=== PATIENT | female | born 1975 | race Caucasian/White ===

== ENCOUNTER 2023-08-09 14:41 | Emergency (ER) | payer OTHER, SELFPAY ==
--- NOTE | ~2023-08-09 | CT_ITS ---
EXAMINATION: CT abdomen pelvis w con DATE: 08/09/2023 17:16 INDICATION: Constipation. Nausea and vomiting. TECHNIQUE: Computed tomography (CT) of the abdomen and pelvis was performed with 100 mL Omnipaque 350 intravenous contrast. Automated exposure control and iterative reconstruction technique were employe d. The dose-length product was 179.71 mGy-cm. COMPARISON: None. FINDINGS: The visualized portions of the lung bases demonstrate mild atelectasis. A calcified left robert ng nodule is consistent with old granulomatous disease. No pleural effusion. The heart size is normal . No pericardial effusion. There are cysts in the liver measuring up to 15 mm. The gallbladder, splee n, pancreas, and adrenal glands are normal. There are cysts in the kidneys measuring up to 7 mm on th e right. There are inserts in the fallopian tubes. There are no dilated loops of bowel. There is a mo derate volume of stool in the colon. There are no pathologically enlarged lymph nodes. There is physi ologic fluid in the pelvis. There is mild lumbar spondylosis. IMPRESSION: 1. No etiology for the patient's symptoms. Reviewed, dictated and finalized at location [facility]. [facility]
[2023-08-09 16:46] LABS: Basophils Absolute Auto 0.1 K/mm3 (0.0-0.1); Eosinophils Absolute Auto 0.1 K/mm3 (0-0.3); Hematocrit 37.3 % (37.0-47.0); Hemoglobin 11.3 g/dL (12.0-15.0); Immature Granulocyte Absolute 0.02 K/mm3 (0.00-0.031); Immature Granulocyte Percent A 0.3 % (0-0.5); Lymphocytes Absolute Auto 2.52 K/mm3 (0.9-3.2); Lymphocytes Percent Auto 35.4 % (18.3-44.2); Mean Corpuscular HGB Conc 30.3 g/dl (32-36); Mean Corpuscular Volume 82.5 fl (80-100); Mean Platelet Volume 10.2 fl (7.4-10.4); Monocytes Absolute Auto 0.6 K/mm3 (0.1-0.6); Monocytes Percent Auto 8.3 % (2.6-8.5); Neutrophils Absolute Auto 3.8 K/mm3 (1.3-6.7); Platelet Count Result 261 k/mm3 (150-375); Red Blood Count 4.52 M/mm3 (4.2-5.4); White Blood Count 7.1 K/mm3 (4.5-10.0)
[2023-08-09] MEDS: SODIUM CHLORIDE 0.9% IV 1,000 ML 999 ML IV CONT (16:46)
[2023-08-09] MEDS: MORPHINE SULFATE (*CRX) 4 MG/ML INJ IV PUSH (16:47)
[2023-08-09] MEDS: ONDANSETRON INJ 4 MG/2 ML VIAL IV PUSH (16:47)
[2023-08-09 16:48] LABS: Appearance Urine Clear (Clear); Bilirubin Urine Negative (Negative); Blood Urine Negative (Negative); Color Urine Yellow (Yellow); Glucose Urine UA Negative (Negative); Ketones Urine Negative (Negative); Leukocyte Esterase Ur Negative LEU/UL (Negative); Nitrate Urine Negative (Negative); Protein Urine Negative (Negative); Specific Grav Ur 1.006 (1.001-1.035); Urobilinogen Urine 0.2 mg/dL (<2.0)
[2023-08-09 16:49] VITALS: BP 113/68; PULSE 65; RESP 17; O2SAT 98
[2023-08-09 16:54] LABS: Potassium 3.9 mmol/L (3.4-5.0)
[2023-08-09 16:58] LABS: Alanine Aminotransferase 351 U/L (6-35); Alkaline Phosphatase 71 U/L (38-126); Anion Gap 6 mmol/L (8-16); Aspartate Amino Transferase 197 U/L (14-36); Bilirubin,Total 0.6 mg/dL (0.2-1.3); Blood Urea Nitrogen 8 mg/dL (7-17); Calcium 9.1 mg/dL (8.4-10.2); Carbon Dioxide 23 mmol/L (22-30); Chloride 107 mmol/L (98-107); Estimated CRCL calculation 93 ml/min; Estimated Glomerular Filt Rate > 60; Glucose 92 mg/dL (65-110); Lipase 115 U/L (23-300); Sodium 136 mmol/L (137-145)
[2023-08-09 17:11] LABS: Add Urine Microscopic? NO
--- NOTE | 2023-08-09 17:17 | ED.ABDPAIN ---
HPI - Abdominal Pain General Chief Complaint: Abdominal Pain Stated Complaint: constipated Time Seen by Provider: 08/09/23 16:34 Source: patient Mode of arrival: ambulatory Limitations: no limitations History of Present Illness HPI narrative: Patient is a 48-year-old female who presents the ED with report of abdominal pain and constipation. Patient reports she has not had a bowel movement in the last 2 weeks. She has not really passed any stool. She has been trying several [id number] therapies and laxatives at home without improvement. She does note history of frequent constipation and states this is a common issue for her. She began having abdominal distention over the last couple of days, worse today. She does report having nausea with vomiting today. Denies fevers. Denies urinary complaints. Denies previous history of bowel obstruction. Has had previous section. Related Data Allergies Allergy/AdvReac Type Severity Reaction Status Date / Time No Known Allergies Allergy Verified 08/09/23 16:37 Review of Systems Review of Systems: CONSTITUTIONAL: Denies fever, chills, or sweats. GASTROINTESTINAL: See HPI. GENITOURINARY: Denies dysuria or hematuria. MUSCULOSKELETAL: Denies back pain, extremity pain, myalgia. All systems reviewed & are unremarkable except as noted in HPI and below Exam Narrative: GENERAL: Well appearing, thin, non-toxic, in no acute distress. HEAD: Normocephalic, atraumatic. RESPIRATORY: Airway patent, respirations nonlabored. Clear to auscultation bilaterally, no rales, rhonchi, wheezing. CARDIOVASCULAR: Regular rate and rhythm without murmurs, rubs, or gallops. ABDOMINAL: Abdomen is slightly bloated and distended, tenderness to palpation in epigastric region and throughout lower abdomen. Hypoactive BS. MUSCULOSKELETAL: Moves all extremities. No gross deformities. SKIN: Warm, dry, normal color. NEURO: A&O X3. Speech clear. Cranial nerves II-XII grossly intact. Steady gait. No ataxic movements. PSYCHIATRIC: Appropriate mood and affect. Normal interaction. Course Vital Signs Vital signs: Vital Signs Pulse Rate 65 08/09/23 16:49 Respiratory Rate 17 08/09/23 16:49 Blood Pressure 113/68 08/09/23 16:49 Pulse Oximetry 98 08/09/23 16:49 Pulse Rate 65 08/09/23 16:49 Respiratory Rate 17 08/09/23 16:49 Blood Pressure 113/68 08/09/23 16:49 Pulse Oximetry 98 08/09/23 16:49 MDM - Abdominal Pain MDM Narrative Medical decision making narrative: Patient presented to ED with 2 week history of constipation, tried several rpas-tif-xazzypr remedies without improvement, developed nausea and vomiting today. Vital signs stable upon arrival. Patient in no acute distress. Diffuse tenderness and distension throughout abdominal exam. Cbc without leukocytosis. Minimal anemia. CMP unremarkable aside from mild transaminitis noted. Normal lipase and bilirubin. UA negative. CT abdomen pelvis obtained and unremarkable. Does show moderate volume colonic stool. No abnormalities of liver noted. Discussed lab and imaging findings with patient. Discussed constipation management, therapies to try at home. Patient would like to try something the ED. Patient given MiraLax, Dulcolax suppository, soapsuds enema. On re-evaluation, she is feeling much better. Had large BM in the ED. Feels ready to go home at this time. Discussed continued constipation management, GI f/u, strict return precautions. Also recommended f/u with repeat LFT lab testing. Patient in agreement with plan. D/C in stable condition. Medical Records Attestation: I reviewed the patient's medical records. Lab Data Attestation: I reviewed the patient's lab results. 08/09/23 16:40 08/09/23 16:40 Labs: Lab Results 08/09/23 Range/Units 16:40 WBC 7.1 (4.5-10.0) K/mm3 RBC 4.52 (4.2-5.4) M/mm3 Hgb 11.3 L (12.0-15.0) g/dL Hct 37.3 (37.0-47.0) % MCV 82.5 (80-1
[2023-08-09] MEDS: KETOROLAC 30 MG/ML VIAL (*BKC) IV PUSH (18:02)
[2023-08-09] MEDS: BISACODYL 10 MG SUPPOSITORY RECTAL (18:03)
[2023-08-09] MEDS: polyethylene glycoL 3350 17 GM POWD.PACK PO (18:03)
[2023-08-09 19:27] VITALS: BP 110/66; PULSE 62; RESP 16; O2SAT 99
== END 2023-08-09 19:29 | disposition home or self-care (01) ==
PROVIDERS: Emergency Medicine; Emergency Provider Physician Assistant; PCP Family Medicine
DX: K59.00 Constipation, unspecified (principal); R74.01 Elevation of levels of liver transaminase levels
CPT/HCPCS: 36415; 74177; 80053; 81003; 81025; 83690; 85025; 96361; 96374; 96375; 99284; A9270; J1885; J2270; J2405; J7030; Q9967

== ENCOUNTER 2023-10-08 09:15 | Outpatient (RCR) | payer OTHER, SELFPAY ==
--- NOTE | 2023-08-20 10:35 | OPREHPOC ---
Outpatient Therapy Plan of Care This is a Multidisciplinary Plan of Care that may contain components documented by all disciplines (PT, OT, and ST.) PT Problem 1 PT Problem #1 Knowledge Deficit PT Goal 1 Goal 1. Patient will perform independent HEP Target Visit 3 PT Problem 2 PT Problem #2 Pain PT Goal 1 Goal 1. No pain with palpation of pelvic floor 2. No pain with abdominal palpation 3. Abdominal pain no higher than 3/10 with daily activities Target Visit 6 PT Problem 3 PT Problem #3 Impaired Strength PT Goal 1 Goal 1. Patient able to fully contract and relax pelvic floor musculature Target Visit 6 PT Problem 4 PT Problem #4 Impaired Functional ADLs PT Goal 1 Goal 1. Patient will not need to call off work due to abdominal pain for at least 1 month 2. Patient will be able to have at least 2 BM per week Target Visit 6
--- NOTE | 2023-08-20 10:35 | PTOPEVAL1 ---
Assessment and note entered by Joann Davis DPT Evaluation Information Assessment Status Evaluation Subjective Information Pt reports a couple year history of constipation and also had a history of it as a child. Her symptoms have been worsening. BM once a week to 1. 5 weeks, sometimes longer. Also states she has been told she needs to have part of her colon removed in addition to having pelvic floor issues. Highest pain 7/10 and lowest 3/10. Pain is typically in her abdomen and sometimes sharp pains near her rectum. Voids 4-5 times a day and 1 time at night. Denies urinary incontinence. Can hold urge as long as needed. Some mild pain after intercourse and tampon use. Pt has been 4 times, 3 C-sections and 1 vaginal delivery. No other FOOD PACKER or b/b history. States she typically drinks water, 1 cup of coffee in the morning and occasional energy drink. Eats 3 meals a day and snacks, small breakfast and larger dinner. When the pain is high reports she can't eat as much. Pt does not eat much dairy but does not cut out any specific food groups. Pt reports the pain from constipation sometimes limits activities and has gotten to the point where she has thrown up. Has had to miss work due to the pain. Pt returns to [facility] in about a month. Patient goal: relief of constipation and pain. Reported Pain Level Pain Score 3: Self Report Assessment PT Clinical Summary The patient is presenting to skilled therapy with a history of constipation and pelvic pain. She presents with significantly increased pelvic floor muscle tone and difficulty with contract/relax as well as pain with palpation. These impairments are contributing to her constipation and pain with typical activities. She will highly benefit from therapy to reduce pain and constipation and restore full function. Plan of Care Interventions Electrical Stimulation,Hot Pack/Cold Pack,Manual Therapy,Neuro Re-education,Patient/Caregiver Education,Therapeutic Activities,Therapeutic Exercise PT Services Indicated Yes Treatment Frequency and 1 time a week for 6 weeks Duration These treatments will address the objective and functional deficits as defined above. The patient will be advanced safely and appropriately in order for the patient to progress towards his/her prior level of function. Additional exercises will be introduced and as well as a comprehensive home exercise program upon discharge, if needed, ?to ensure carryover of functional gains achieved in the clinic. This treatment plan has been reviewed and agreement upon by the patient.
--- NOTE | 2023-09-16 13:42 | PCPTNOTE ---
Patient called to cancel appointment 09/16/23 due to illness.
--- NOTE | 2023-09-23 15:53 | OPREHPOC ---
Outpatient Therapy Plan of Care This is a Multidisciplinary Plan of Care that may contain components documented by all disciplines (PT, OT, and ST.) PT Problem 1 PT Problem #1 Knowledge Deficit PT Goal 1 Goal 1. Patient will perform independent HEP Target Visit 3 Progress Met PT Problem 2 PT Problem #2 Pain PT Goal 1 Goal 1. No pain with palpation of pelvic floor 2. No pain with abdominal palpation 3. Abdominal pain no higher than 3/10 with daily activities Target Visit 6 Progress Met PT Problem 3 PT Problem #3 Impaired Strength PT Goal 1 Goal 1. Patient able to fully contract and relax pelvic floor musculature Target Visit 10 Progress Partially Met PT Problem 4 PT Problem #4 Impaired Functional ADLs PT Goal 1 Goal 1. Patient will not need to call off work due to abdominal pain for at least 1 month 2. Patient will be able to have at least 2 BM per week Target Visit 10 Progress Partially Met
--- NOTE | 2023-09-23 15:55 | PTOPPROG ---
Assessment and note entered by Joann Davis DPT Evaluation Information Assessment Status Progress Subjective Information Patient reports feeling improvement with therapy. Has had 2 BM in the last week. reports no pain in the last week, did have some a couple weeks ago. Return to MD not scheduled yet. Assessment PT Clinical Summary The patient has made good progress in therapy so far. She reports no pelvic or abdominal pain in the last week and has had 2 BM in the last week. She demonstrates improved pelvic floor muscle tone , no pain with palpation, and able to contract musculature but continued difficulty relaxing. She will benefit from continued therapy to further address muscle tone and pain in order to restore full function. Plan of Care Interventions Electrical Stimulation,Hot Pack/Cold Pack,Manual Therapy,Neuro Re-education,Patient/Caregiver Education,Therapeutic Activities,Therapeutic Exercise PT Services Indicated Yes Treatment Frequency and 1 time a week for 4 visits Duration These treatments will address the objective and functional deficits as defined above. The patient will be advanced safely and appropriately in order for the patient to progress towards his/her prior level of function. Additional exercises will be introduced and as well as a comprehensive home exercise program upon discharge, if needed, ?to ensure carryover of functional gains achieved in the clinic. This treatment plan has been reviewed and agreement upon by the patient.
--- NOTE | 2023-10-14 11:52 | PTOPDC ---
Assessment and note entered by Joann Davis DPT Evaluation Information Assessment Status Discharge - Pt Not Present Subjective Information - Assessment PT Clinical Summary The patient called to discharge from therapy as she will be having surgery. Plan of Care PT Services Indicated No
== END 2023-10-14 14:37 | disposition home or self-care (01) ==
LOC: ANHPT 09:15
PROVIDERS: PCP Family Medicine
DX: K59.00 Constipation, unspecified (principal)
CPT/HCPCS: 97110; 97112; 97140; 97162; 97530

== ENCOUNTER 2023-10-21 07:44 | Emergency (ER) | payer OTHER, SELFPAY ==
--- NOTE | ~2023-10-21 | CT_ITS ---
Noncontrast CT scan of the cervical spine Technique: Multiple contiguous axial [address] images of the cervical spine were obtained and rec onstructed in 2D sagittal and coronal planes on the acquisition scanner. Dose reduction technique was used on this scan by utilizing automated exposure control, adjustment of the mA and/or kV according to patient size. The dose-length product (DLP) was 195.73 mGy-cm. Clinical History: Left-sided radiculopathy Findings: No fracture injury. There is minimal grade 1 retrolisthesis of C5 over C6. There is advance d degenerative disc narrowing at C5-C6. Remaining disc spaces are relatively well-preserved. At C2-C3, there is minimal disc bulge. No spinal canal stenosis, cord compression or neural foraminal narrowing identified. At C3-C4, there is mild central disc bulge with probable left facet arthropathy. Possible minimal lef t neural foraminal narrowing. Right neural foramen preserved. No canal stenosis or cord compression e vident. At C4-C5, there is minimal disc bulge. No spinal canal stenosis, cord compression, or definite neural foraminal narrowing. At C5-C6, there is mild disc osteophyte complex. No canal stenosis or cord compression. Possible mini mal bilateral neural foraminal narrowing. At C6-C7, there is minimal disc bulge. No spinal canal stenosis, cord compression, or neural foramina l narrowing. Paravertebral soft tissues are unremarkable. No prevertebral soft tissue swelling. Impression: Mild degenerative spondylosis overall. Minimal grade 1 retrolisthesis of C5 over C6. Reviewed, dictated and finalized at [facility]. Impression: Mild degenerative spondylosis overall. Minimal grade 1 retrolisthesis of C5 over C6.
--- NOTE | 2023-10-21 09:35 | ED.GENADULT ---
HPI - General Adult General Chief complaint: Neck Pain/Injury Stated complaint: Neck pain Time Seen by Provider: 10/21/23 09:00 Source: patient Mode of arrival: ambulatory Limitations: no limitations History of Present Illness HPI narrative: This is a 48-year-old female who presents to the ED with chief complaint of neck pain ongoing for the past week. Patient reports she saw her PCP initially was told she had degenerative disc disease and neck. They have scattered this therapy. Patient states the pain continues to worsen she does not feel that she can do 6 weeks of physical therapy. Reports pain is located in the neck and radiates superiorly and inferiorly at times. Reports pain is worse on the left side and radiates into the left shoulder and left upper arm. Denies chest pain, shortness of breath, numbness, weakness, fevers, chills, nausea, vomiting. Denies IV drug use. Related Data Home Medications Medication Instructions Recorded Confirmed alprazolam 1 mg tablet mg 10/21/23 cyclobenzaprine 10 mg tablet mg 10/21/23 hydroxyzine HCl 50 mg tablet mg 10/21/23 lithium carbonate 450 mg mg PO 10/21/23 tablet,extended release meloxicam 7.5 mg tablet mg 10/21/23 ropinirole 0.25 mg tablet mg 10/21/23 10/21/23 Allergies Allergy/AdvReac Type Severity Reaction Status Date / Time No Known Allergies Allergy Verified 10/21/23 08:03 Review of Systems Review of Systems: All systems as dictated in HPI Exam Narrative: GENERAL: Well-appearing, well-nourished, and in no acute distress. HEAD: Normocephalic, atraumatic. EYES: PERRLA and EOMI. ENT: Nares clear, no rhinorrhea or epistaxis. Mucous membranes moist. Oropharynx without tonsillar hypertrophy exudate or other lesions. NECK: Supple. No adenopathy or masses. No signs of meningismus. CHEST: No respiratory distress. Clear to auscultation. No wheezes rales or rhonchi HEART: Regular rate and rhythm. No murmur heard. Normal peripheral pulses. ABDOMEN: Soft, nontender, nondistended, normal active bowel sounds. MSK: No midline spinal tenderness present. Active range of motion limited with extension of the cervical spine and leftward rotation of the cervical spine. Otherwise ROM is normal. 5/5 strength and sensation in the upper and lower extremities. SKIN: Warm, dry, no rash. NEURO: Alert and oriented x3. No focal deficits. PSYCH: Normal mood and affect. Course Reevaluation(s) Reevaluation #1: Feeling much improved on Toradol and Valium. Ready to go home. Date: 10/21/23 Time: 10:49 Medical Decision Making MDM Narrative Medical decision making narrative: This is a 48-year-old female who presents to the ED with chief complaint of neck pain x1 week. Patient has been told she has degenerative disc disease. Vitals are normal. No neurologic deficits. No signs of meningismus. Lab work shows my slightly elevated white count 11.4, consistent with stress reaction. Hemoglobin noted to be low at 10.6 with MCV low indicating microcytic anemia CMP is unremarkable. CT C-spine: Impression: Mild degenerative spondylosis overall. Minimal grade 1 retrolisthesis of C5 over C6.. Overall symptoms and presentation are consistent with degenerate disease. She was given Valium and Toradol here with good relief of symptoms. She has follow-up with her PCP and knows she has to do physical therapy. Pt will be discharged in stable condition. Return precautions given and supportive measures discussed. Pt is understanding and agreeable with plan for discharge and follow-up with PCP. Lab Data 10/21/23 09:56 10/21/23 09:56 Labs: Lab Results 10/21/23 Range/Units 09:56 WBC 11.4 H (4.5-10.0) K/mm3 RBC 4.42 (4.2-5.4) M/mm3 Hgb 10.6 L (12.0-15.0) g/dL Hct 32.8 L (37.0-47.0) % MCV 74.2 L (80-100) fl MCH 24.0 L (26-34) pg MCHC 32.3 (32-36) g/dl RDW 15.7 H (11.5-14.5) % Plt Count 268 (150-375) k/mm3 MPV 9.9 (7.4-10.
[2023-10-21] MEDS: KETOROLAC 30 MG/ML VIAL (*BKC) IV PUSH (09:52)
[2023-10-21] MEDS: diazePAM INJ (*CRX) 10 MG/2 ML SYRINGE 5 MG IV PUSH (09:53)
[2023-10-21 10:04] LABS: Basophils Absolute Auto 0.1 K/mm3 (0.0-0.1); Basophils Percent Auto 0.4 % (0.2-1.2); Eosinophils Absolute Auto 0.1 K/mm3 (0-0.3); Eosinophils Percent Auto 0.5 % (0-4.4); Hematocrit 32.8 % (37.0-47.0); Hemoglobin 10.6 g/dL (12.0-15.0); Immature Granulocyte Absolute 0.05 K/mm3 (0.00-0.031); Immature Granulocyte Percent A 0.4 % (0-0.5); Lymphocytes Absolute Auto 1.25 K/mm3 (0.9-3.2); Mean Corpuscular HGB Conc 32.3 g/dl (32-36); Mean Corpuscular Volume 74.2 fl (80-100); Mean Platelet Volume 9.9 fl (7.4-10.4); Monocytes Absolute Auto 1.1 K/mm3 (0.1-0.6); Neutrophils Absolute Auto 8.8 K/mm3 (1.3-6.7); Neutrophils Percent Auto 77.7 % (45.5-73.1); Platelet Count Result 268 k/mm3 (150-375); Red Blood Count 4.42 M/mm3 (4.2-5.4); Red Cell Distribution Width 15.7 % (11.5-14.5); White Blood Count 11.4 K/mm3 (4.5-10.0)
[2023-10-21 10:21] LABS: Alanine Aminotransferase 27 U/L (6-35); Albumin Level 3.7 g/dL (3.5-5.1); Alkaline Phosphatase 65 U/L (38-126); Anion Gap 7 mmol/L (4-12); Aspartate Amino Transferase 27 U/L (14-36); Bilirubin,Total 0.5 mg/dL (0.2-1.3); Blood Urea Nitrogen 9 mg/dL (7-17); Calcium 8.7 mg/dL (8.4-10.2); Carbon Dioxide 21 mmol/L (22-30); Chloride 106 mmol/L (98-107); Estimated CRCL calculation 97 ml/min; Estimated Glomerular Filt Rate > 60; Glucose 101 mg/dL (65-110); Potassium 3.3 mmol/L (3.4-5.0); Sodium 134 mmol/L (137-145)
[2023-10-21 10:35] LABS: Hypochromasia 1+; Microcytosis 1+ (NORMAL); Platelet Estimate Adequate (Adequate); Schistocytes None Seen
== END 2023-10-21 11:00 | disposition home or self-care (01) ==
PROVIDERS: Emergency Provider Physician Assistant; PCP Family Medicine
DX: M50.30 Other cervical disc degeneration, unspecified cervical region (principal); M47.812 Spondylosis without myelopathy or radiculopathy, cervical region
CPT/HCPCS: 36415; 72125; 80053; 85025; 96374; 96375; 99284; J1885; J3360

== ENCOUNTER 2023-11-11 08:15 | Outpatient (RCR) | payer OTHER, SELFPAY ==
--- NOTE | 2023-11-01 09:09 | PTOPEVAL1 ---
Assessment and note entered by Collin Schaefer, PT Evaluation Information Assessment Status Evaluation Diagnosis Cervical pain, Degenerative disc disease Onset March 2023 Subjective Information Reports that she has had neck pain for almost a year at this point. She has been getting pain into shoulder and neck. Occasional pain down her arms. Pain is constant. She has a lot of trouble at work with pain when lifting and reaching. Headaches are frequent as well and seem to stem from the base of her skull. Frequent wake up throughout the night with pain and discomfort. Reported Pain Level Pain Score 4: Self Report Assessment PT Clinical Summary Patient demonstrates issues with ry cervical ROM at this time with postural deficits compounding. Some periscapular weakness inducing increased cervical tension. Patient has visible structural issues with C5-C6 with CT imaging. Will benefit from skilled therapy to address ROM and strength deficits for gross pain reduction and ROM improvement. Plan of Care Interventions Electrical Stimulation,Manual Therapy,Neuro Re- education,Therapeutic Activities,Therapeutic Exercise PT Services Indicated Yes Treatment Frequency and 2x/week for 12 visits Duration These treatments will address the objective and functional deficits as defined above. The patient will be advanced safely and appropriately in order for the patient to progress towards his/her prior level of function. Additional exercises will be introduced and as well as a comprehensive home exercise program upon discharge, if needed, ?to ensure carryover of functional gains achieved in the clinic. This treatment plan has been reviewed and agreement upon by the patient.
--- NOTE | 2023-11-01 09:15 | OPREHPOC ---
Outpatient Therapy Plan of Care This is a Multidisciplinary Plan of Care that may contain components documented by all disciplines (PT, OT, and ST.) PT Problem 1 PT Problem #1 Knowledge Deficit PT Goal 1 Goal [place] wth HEP Target Visit 4 PT Problem 2 PT Problem #2 Impaired Range of Motion PT Goal 1 Goal Demonstrate 70 degrees ry cervical rotation to improve functional field of view Target Visit 12 PT Goal 2 Goal Demonstrate 30 degrees ry cervical bending pain free for improved sellping posture Target Visit 12 PT Problem 3 PT Problem #3 Impaired Strength PT Goal 1 Goal Improve ry shoulder external rotation strength to improve shoulder capsule strength and stability for postural control Target Visit 12
--- NOTE | 2023-11-16 10:50 | PCPTNOTE ---
pt did not show for today's appt; called and left voicemail message. She does not have any further appt scheduled.
--- NOTE | 2023-11-30 13:56 | PCPTNOTE ---
2nd now show, left voice mail with reminder of next appt.
--- NOTE | 2023-12-03 09:39 | PCPTNOTE ---
3rd now show, left voice mail notice of d/c.
--- NOTE | 2023-12-06 08:26 | PTOPDC ---
Assessment and note entered by Collin Schaefer, PT Discharge Information Assessment Status Discharge - Pt Not Present Diagnosis Cervical pain, Degenerative disc disease Onset March 2023 Subjective Information Reports that she has had neck pain for almost a year at this point. She has been getitng pain into shoulder and neck. Occasional pain down her arms. Pain is constant. She has a lot of trouble at work with pain when lifting and reaching. Headaches are frequent as well and seem to stem from the base of her skull. Frequent wakeup throughout the night with pain and discomfort. Assessment PT Clinical Summary Patient has No Showed/No Called for 3 consecutive visits with last attended appointment on 11/11/23. Patient was present for 4 of 8 scheduled visits. Will be discharged at this time per cancellation policy and lack of communication with clinic. Plan of Care PT Services Indicated D/C per cancellation policy
== END 2023-12-06 09:23 | disposition home or self-care (01) ==
LOC: ANHPT 08:15
PROVIDERS: PCP Family Medicine; Visit Provider Family Medicine
DX: M50.30 Other cervical disc degeneration, unspecified cervical region (principal)
CPT/HCPCS: 20560; 97014; 97110; 97140; 97161; 99199; G0283

== ENCOUNTER 2023-12-13 01:00 | Emergency (ER) | payer OTHER, SELFPAY ==
[2023-12-13 01:04] VITALS: BP 125/98; PULSE 105; RESP 16; TEMP 37.2; O2SAT 100
[2023-12-13 01:32] VITALS: BP 133/88; PULSE 82; RESP 17; O2SAT 98
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
[2023-12-13] MEDS: ceFAZolin SODIUM 1 GM VIAL IM (01:50)
[2023-12-13] MEDS: WATER, STERILE FOR INJECTION 10 ML VIAL XX (01:50)
[2023-12-13] MEDS: IBUPROFEN 400 MG TABLET 800 MG PO (01:50)
[2023-12-13] MEDS: ACETAMINOPHEN 500 MG TABLET 1000 MG PO (01:50)
[2023-12-13 01:51] VITALS: BP 133/88; PULSE 97; RESP 17; O2SAT 97
== END 2023-12-13 01:57 | disposition home or self-care (01) ==
PROVIDERS: Emergency Provider Emergency Medicine; PCP Family Medicine
DX: S51.812A Laceration without foreign body of left forearm, initial encounter (principal); W26.0XXA Contact with knife, initial encounter
CPT/HCPCS: 96372; 99283; A9270; J0690

== ENCOUNTER 2024-03-21 09:44 | Emergency (ER) | payer OTHER, SELFPAY ==
--- NOTE | ~2024-03-21 | XR_ITS ---
EXAMINATION: XR ankle RT min 3V DATE: 03/21/2024 10:07 INDICATION: Right ankle injury and swelling. TECHNIQUE: 4 views of right ankle were obtained. COMPARISON: None. FINDINGS: There is an oblique fracture of distal fibula with medial aspect of the fracture line at th e level of the tibial plafond. The distal fracture fragment demonstrates 2 mm posterolateral displace ment. Joint spaces are normal. There is ankle soft tissue swelling. IMPRESSION: 1. Oblique fracture of distal fibula. Reviewed, dictated and finalized at location A.
[2024-03-21 09:47] VITALS: BP 110/69; PULSE 68; RESP 16; TEMP 36.3; O2SAT 98
[2024-03-21] MEDS: HYDROcodone/acetaminophen (*CRX) 5-325 MG TABLET 1 TAB PO (11:32)
--- NOTE | 2024-03-21 11:32 | ED.LOWEXIN ---
HPI - Extremity Injury (Lower) General Chief Complaint: Extremity Injury, Lower Stated Complaint: fall, ankle pain Time Seen by Provider: 03/21/24 11:25 Source: patient Mode of arrival: ambulatory Limitations: no limitations History of Present Illness HPI Narrative: Patient is a 48 y/o female who presents to the ED with c/o R ankle pain. Patient reports she was locking up her dog early this morning when she slipped and fell, rolling her R ankle. Inversion injury. C/o pain to R lateral ankle. Reports pain radiating into foot with some tingling. Denies numbness. Denies any other areas of pain. Denies HI/LOC. Related Data Home Medications Medication Instructions Recorded Confirmed alprazolam 1 mg tablet mg 10/21/23 cyclobenzaprine 10 mg tablet mg 10/21/23 hydroxyzine HCl 50 mg tablet mg 10/21/23 lithium carbonate 450 mg mg PO 10/21/23 tablet,extended release meloxicam 7.5 mg tablet mg 10/21/23 ropinirole 0.25 mg tablet mg 10/21/23 10/21/23 Allergies Allergy/AdvReac Type Severity Reaction Status Date / Time No Known Allergies Allergy Verified 12/13/23 01:11 Review of Systems Review of Systems: All systems reviewed & are unremarkable except as noted in HPI. All systems reviewed & are unremarkable except as noted in HPI and below Exam Narrative: GENERAL: Well appearing, thin, non-toxic, in no acute distress. HEAD: Normocephalic, atraumatic. RESPIRATORY: Airway patent, respirations nonlabored. CARDIOVASCULAR: Regular rate and rhythm. DP/PT pulses are intact and easily palpable. MUSCULOSKELETAL: Moves all extremities. Limited ROM of R ankle d/t pain. Moderate swelling noted to R lateral malleolus with focal tenderness to palpation extending across anterior dorsal foot. No significant tenderness throughout foot or knee. Sensation intact throughout foot and lower extremity. No foot drop. SKIN: Warm, dry, normal color. NEURO: A&O X3. Speech clear. No ataxic movements. PSYCHIATRIC: Appropriate mood and affect. Normal interaction. Course Vital Signs Vital signs: Vital Signs Temperature 97.4 F L 03/21/24 09:47 Pulse Rate 68 03/21/24 09:47 Respiratory Rate 16 03/21/24 09:47 Blood Pressure 110/69 03/21/24 09:47 Pulse Oximetry 98 03/21/24 09:47 Temperature 97.4 F L 03/21/24 09:47 Pulse Rate 68 03/21/24 09:47 Respiratory Rate 16 03/21/24 09:47 Blood Pressure 110/69 03/21/24 09:47 Pulse Oximetry 98 03/21/24 09:47 MDM - Extremity Injury (Lower) MDM Narrative Medical decision making narrative: Patient presented to ED with right ankle pain status post inversion injury. Vital signs stable. Patient's injury is consistent with musculoskeletal etiology. No signs of neurologic or vascular compromise on physical examination. Compartments are soft without signs of compartment syndrome. XR showing oblique fracture of distal fibula. Pain is consistent with exam and injury. Patient placed in short leg posterior splint in the ED. Given pain medication. Given crutches. Will be discharged to follow-up with orthopedics as an outpatient. Advised to call office today to make follow-up appointment. Discussed rice therapy, strict return precautions. Patient denies any other areas of pain or injury from the fall. Discharged in stable condition. Medical Records Attestation: I reviewed the patient's medical records. Imaging Data Attestation: I personally reviewed and interpreted this imaging study as follows: Radiologist's impression: ITS Impressions Ankle X-Ray 03/21/24 10:10 IMPRESSION: 1. Oblique fracture of distal fibula. Discharge Plan Discharge Clinical Impression: Fall from ground level Fracture of distal end of fibula Qualifiers: Encounter type: initial encounter Fracture type: closed Fracture morphology: unspecified fracture morphology Laterality: right Qualified Code(s): S82.831A - Other fracture of upper and lower end of right fibul
[2024-03-21] MEDS: KETOROLAC (*BKC) 60 MG/2 ML VIAL IM (11:33)
== END 2024-03-21 12:25 | disposition home or self-care (01) ==
PROVIDERS: Emergency Provider Physician Assistant; PCP Family Medicine
DX: S89.391A Other physeal fracture of lower end of right fibula, initial encounter for closed fracture (principal); W01.0XXA Fall on same level from slipping, tripping and stumbling without subsequent striking against object, initial encounter; X50.9XXA Other and unspecified overexertion or strenuous movements or postures, initial encounter
CPT/HCPCS: 29515; 73610; 96372; 99284; A9270; J1885

== ENCOUNTER 2024-04-14 14:42 | Outpatient (CLI) | payer OTHER, SELFPAY ==
--- NOTE | ~2024-04-14 | XR_ITS ---
XR ankle RT min 3V 04/14/2024 14:57 Indication: Follow-up right ankle fracture Procedure: 4 views right ankle performed in fiberglass cast which obscures bone detail Comparison: 03/21/2024 Findings: There is a healing oblique minimally displaced distal fibular fracture in near-anatomic ali gnment. Ankle mortise intact. Soft tissue evaluation limited by cast. No foreign bodies identified. S table alignment allowing for differences of technique. Impression: 1: Stable alignment of healing oblique distal fibular fracture. Reviewed, dictated and finalized at location B. Impression: 1: Stable alignment of healing oblique distal fibular fracture.
== END 2024-04-14 14:43 | disposition home or self-care (01) ==
PROVIDERS: PCP Family Medicine; Visit Provider Orthopaedic Surgery
DX: S82.839D Other fracture of upper and lower end of unspecified fibula, subsequent encounter for closed fracture with routine healing (principal); X58.XXXD Exposure to other specified factors, subsequent encounter
CPT/HCPCS: 73610

== ENCOUNTER 2024-09-10 19:47 | Emergency (ER) | payer OTHER, SELFPAY ==
--- NOTE | ~2024-09-10 | XR_ITS ---
EXAM: XR knee RT 3V DATE: 09/10/2024 20:14 HISTORY: injury . COMPARISON: None available. FINDINGS: Normal mineralization. No fracture or dislocation. No lytic or blastic lesion. Joint space s are maintained. No erosion or periosteal change. Subcutaneous edema over the medial thigh. Large vo lume joint fluid. IMPRESSION: No acute osseous finding in the right knee. Large right knee joint effusion. Reviewed, dictated and finalized at location K.
[2024-09-10 19:49] VITALS: BP 124/84; PULSE 120; RESP 20; TEMP 36.6; O2SAT 100
--- OUTSIDE RECORDS SUMMARY | 2024-09-10 19:50 | XMS_ITS | Clinical Summary ---
Author Organization [facility] Address [address] [place] [address] Phone Care Team Providers Care Complex Commercial Litigation Paralegal Name Role Phone Jarrell Rios MD Primary Care Provider [phone] Allergies No known active allergies Medications pantoprazole (PROTONIX) 40 MG Tablet Delayed Response Take 1 tablet every day by oral route in the morning. Active Abilify 15 MG Tablet Take 0.5 Tablets by mouth daily. 30 Tablet 3 4 Active escitalopram (LEXAPRO) 20 MG Tablet Take 1 Tablet by mouth daily. 30 Tablet 3 4 Active Lexapro 10 MG Tablet Take 1 Tablet by mouth daily. 30 Tablet 3 4 Active hydrOXYzine (ATARAX) 50 MG Tablet Take 1 Tablet by mouth 3 times daily as needed for Anxiety. 90 Tablet 3 4 Active mirtazapine (REMERON) 30 MG Tablet Take 1 Tablet by mouth nightly. 30 Tablet 3 4 Active ALPRAZolam (XANAX) 1 MG TabletIndicatio ns:Chronic anxiety Take 0.5-1 Tablets by mouth 2 times daily as needed for Anxiety. 60 Tablet 5 Active lithium (ESKALITH) 450 MG Tablet Controlled Release Take 1 Tablet by mouth 2 times daily. 60 Tablet 5 Active lithium (ESKALITH) 450 MG Tablet Controlled Release Take 1 Tablet by mouth 2 times daily. 60 Tablet 3 4 09/07/19 25 Discontinu ed(Reorder ) ALPRAZolam (XANAX) 1 MG TabletIndicatio ns:Chronic anxiety TAKE 1/2-1 TABLET BY MOUTH 2 TIMES DAILY NEEDED FOR ANXIETY. INDICATIONS: FEELING ANXIOUS 60 Tablet 5 09/07/19 25 Discontinu ed(Reorder ) Active Problems Problem Noted Date Diagnosed Date Chronic anxiety 09/01/2021 History of substance abuse 09/01/2021 Severe recurrent major depression 09/01/2021 Encounters Date Type Department Care Team Description 09/06/2024 Telephone [facility] [address] [place] [address] [phone] Zena Church APRN, CNP 08/07/2024 Refill [facility] [address] [place] [address] [phone] Zena Church APRN, [place] Medication Refill from Last 3 Months Family History Medical History Relation Name Comments Depression Daughter Depression Son Relation Name Status Comments Daughter Alive Son Alive Social History Tobacco Use Types Packs/Day Years Used Date Smoking Tobacco: Every Day Cigarettes Smokeless Tobacco: Never Tobacco Cessation:Ready to Q uit: Not Asked; Counseling Given: Not Answered Alcohol Use Standard Drinks/Week Comments Not Currently 0 (1 standard drink = 0.6 oz pur e alcohol) PHQ-2 Answer Date Recorded Total Score - Questions 1-9 4 04/28 Comments Unknown Sex and Gender Information Value Date Recorded Sex Assigned at Not on file Legal Sex Female 3:20 AM CDT Gender Identity Not on file Sexual Orientation Not on file Last Filed Vital Signs Vital Sign Reading Time Taken Comments Blood Pressure 108/66 05/16/2024 11:13 AM SURGICAL AIDE Pulse 92 05/16/2024 11:13 AM SURGICAL AIDE Temperature - - Respiratory Rate 18 05/16/2024 11:13 AM SURGICAL AIDE Oxygen Saturation 100% 05/16/2024 11:13 AM SURGICAL AIDE Inhaled Oxygen Concentration - - Weight 47.2 kg (104 lb) 05/16/2024 11:13 AM SURGICAL AIDE Height 160 cm (5' 3 ) 05/16/2024 11:13 AM SURGICAL AIDE Body Mass Index 18.42 05/16/2024 11:13 AM SURGICAL AIDE Plan of Treatment Upcoming Encounters Date Type Department Care Team (Late st Contact Info) Description 09/11/2024 3:30 PM CDT Office Visit [facility] [address] [place] [address] [phone] WuTala upton, LINE PAINTING MACHINE OPERATOR, STRAPPING MACHINE OPERATOR [address] [place] [address] Health Maintenance Due Date Last Done Comments Hepatitis C Virus (HCV) Screening 1977 Hepatitis B Immunization (1 of 3 - 19+ 3-dose series) 1996 Pneumococcal Immunization Combined (1 of 2 - PCV) 1996 Pap Smear 1998 Cervical Cancer Screening (CCS) 2007 HPV/Cotest 2007 Mammogram 02/26/2021 02/27/2020, 02/27/2020 Colonoscopy 2022 Colorectal Cancer Screening 2022 SARS-COV-2 Immunization ( season) 2024 10/25/2020, 06/28/2020 Respiratory Syncytial Virus (RSV) Immunization (Adult) (1 - 1-dose 75+ series) 2052 TdaP Immunization Completed 12/05/2019 Discussion re Starting/Frequency of Mammograms Completed 02/27/2020 Influenza Immunization Completed 04/18/2024 Meningococcal Immunization (ACWY) Aged Out No longer eligible b ased on patient's age to complete this topic Rotavirus Immunization Aged Out No lo nger eligible based on patient's age to complete this topic Insurance MEDICAID [place] Care Teams Complex Commercial Litigation Paralegal Relationship Specialty Start Date End Date Jarrell Rios MD [address] [place] [address] PCP - General Family Medicine 04/03/24
--- NOTE | 2024-09-10 22:21 | PC.NURSE ---
Patient to desk stating I'm not going to sit here and wait in fucking pain, I'm leaving.
--- OUTSIDE RECORDS SUMMARY | 2024-09-10 22:24 | XMS_ITS | Clinical Summary ---
Author Organization [facility] Address [address] [place] [address] Phone Care Team Providers Care Universal Grinder Set Up Operator Name Role Phone Jarrell Rios MD Primary Care Provider [phone] Allergies No known active allergies Medications pantoprazole [...] Type Department Care Team Description 09/06/2024 Telephone [facility] [address] [place] [address] [phone] Zena Church APRN, CNP 08/07/2024 Refill [facility] [address] [place] [address] [phone] Zena Church APRN, [place] Medication Refill [...] Comments Blood Pressure 108/66 05/16/2024 11:13 AM STEREOPTICIAN Pulse 92 05/16/2024 11:13 AM STEREOPTICIAN Temperature - - Respiratory Rate 18 05/16/2024 11:13 AM STEREOPTICIAN Oxygen Saturation 100% 05/16/2024 11:13 AM STEREOPTICIAN Inhaled Oxygen Concentration - - Weight 47.2 kg (104 lb) 05/16/2024 11:13 AM STEREOPTICIAN Height 160 cm (5' 3 ) 05/16/2024 11:13 AM STEREOPTICIAN Body Mass Index 18.42 05/16/2024 11:13 AM STEREOPTICIAN Plan of Treatment Upcoming Encounters Date Type Department Care Team (Late st Contact Info) Description 09/11/2024 3:30 PM CDT Office Visit [facility] [address] [place] [address] [phone] WuTala upton, ERP CONSULTANT, SENIOR NET ARCHITECT [address] [place] [address] Health Maintenance Due Date Last Done Comments [...] age to complete this topic Insurance MEDICAID [place] Care Teams Universal Grinder Set Up Operator Relationship Specialty Start Date End Date Jarrell Rios MD [address] [place] [address] PCP - General Family Medicine 04/03/24
== END 2024-09-10 22:31 | disposition left against medical advice (07) ==
LOC: ANHED 22:22
PROVIDERS: Emergency Provider Student in an Organized Health Care Education/Training Program; PCP Family Medicine
DX: S82.831A Other fracture of upper and lower end of right fibula, initial encounter for closed fracture (principal); M25.461 Effusion, right knee; W18.39XA Other fall on same level, initial encounter
CPT/HCPCS: 73562; 99199

== ENCOUNTER 2024-09-12 15:16 | Emergency (ER) | payer OTHER, SELFPAY ==
--- NOTE | ~2024-09-12 | XR_ITS ---
XR tibia fibula RT 2V Ordering provider: Horacio Clark PA-C History: . fall wednesday when dog pulled her down . Comparison: None. FINDINGS: BONES: Lucency in the distal fibula suggestive of a fracture. No other definite fractures seen. JOINT SPACES: Normal. SOFT TISSUES: Normal. IMPRESSION: Lucency seen in the distal fibula in the area of the ankle suggestive of a fracture. Evaluation for t enderness in the area advised. Reviewed, dictated and finalized at location A. IMPRESSION: Lucency seen in the distal fibula in the area of the ankle suggestive of a frac ture. Evaluation for tenderness in the area advised.
--- NOTE | ~2024-09-12 | XR_ITS ---
XR knee RT min 4V Ordering provider: Horacio Clark History: . fall wednesday when dog pulled her down . Comparison: None. FINDINGS: BONES: No acute fracture or dislocation. JOINT SPACES: Normal. SOFT TISSUES: Fluid in the suprapatellar bursa. IMPRESSION: No acute osseous abnormality right knee. Reviewed, dictated and finalized at location A.
--- NOTE | ~2024-09-12 | XR_ITS ---
XR ankle RT min 3V Ordering provider: Horacio Clark PA-C History: . fall wednesday when dog pulled her down . Comparison: None. FINDINGS: BONES: Highly suggestive fracture in the lateral malleolus is seen. JOINT SPACES: Normal. SOFT TISSUES: Normal. IMPRESSION: Highly suggestive fracture in the lateral malleolus. Reviewed, dictated and finalized at location A.
[2024-09-12 15:26] VITALS: BP 136/82; PULSE 106; RESP 16; TEMP 36.6; O2SAT 100
--- NOTE | 2024-09-12 16:26 | ED_ITS ---
HPI - Extremity Injury (Lower) General Chief Complaint: Extremity Injury, Lower Stated Complaint: Injury right knee-drug by dog Time Seen by Provider: 09/12/24 16:25 Source: patient Mode of arrival: ambulatory Limitations: no limitations History of Present Illness HPI Narrative: This is a 49-year-old female who presents to the ED for chief complaint of right knee, right ankle injury that occurred 3 days ago. States that she was walking her dog and the dog pulled very hard. States that this caused her to go down to the ground. States that she has pain to the right knee, right ankle following the fall. States that she was seen in the ER initially during the presentation and was told that she may end up needing MRI for her knee. States that they did stitches which are still in place for the next 5 days. Denies any further sites of pain or injury. Related Data Home Medications ?Medication ?Instructions ?Recorded ?Confirmed ?Last Taken ?Type alprazolam 1 mg tablet mg 10/21/23 04/14/24 Unknown History cyclobenzaprine 10 mg tablet mg 10/21/23 04/14/24 Unknown History hydroxyzine HCl 50 mg tablet mg 10/21/23 04/14/24 Unknown History lithium carbonate 450 mg mg PO 10/21/23 04/14/24 Unknown History tablet,extended release meloxicam 7.5 mg tablet mg 10/21/23 04/14/24 Unknown History ropinirole 0.25 mg tablet mg 10/21/23 04/14/24 Unknown History Allergies Allergy/AdvReac Type Severity Reaction Status Date / Time No Known Allergies Allergy Verified 09/12/24 16:32 Review of Systems Review of Systems: All systems as dictated in [facility] Social History Social History Smoking status: Current every day smoker Do You Feel Safe in your Home?: Yes Lack of Transportation: No Lack of Food: Never True Current Housing: I Have Housing Concerned About Future Housing: No Difficulty Paying Gas/Electric Bills: No Difficulty Paying for Meds: No Currently Unemployed: No Education: High School Diploma/GED Difficulty w/ Childcare or Family Care: No Exam Narrative: GENERAL: Well-appearing, well-nourished, and in no acute distress. HEAD: Normocephalic, atraumatic. EYES: PERRLA and EOMI. ENT: Nares clear, no rhinorrhea or epistaxis. Mucous membranes moist. Orophary nx without tonsillar hypertrophy exudate or other lesions. NECK: Supple. No adenopathy or masses. CHEST: No respiratory distress. Clear to auscultation. No wheezes rales or rhonchi HEART: Regular rate and rhythm. No murmur heard. Normal peripheral pulses. ABDOMEN: Soft, nontender, nondistended, normal active bowel sounds. MSK: RLE: Right knee effusion and tenderness present throughout the knee. No deformity. The skin has several sutures in place to the anterolateral knee. Neurovascularly intact distally Right ankle mildly tender to the lateral malleolus. No medial tenderness. Minimal swelling. No deformity LLE: Mild well-healed abrasions to the knee. Otherwise extremity exam is benign SKIN: Warm, dry, no rash. NEURO: Alert and oriented x4. No focal deficits. PSYCH: Normal mood and affect. Course Vital Signs Vital signs: Vital Signs Temperature 97.9 F 09/12/24 15:26 Pulse Rate 106 H 09/12/24 15:26 Respiratory Rate 16 09/12/24 15:26 Blood Pressure 136/82 09/12/24 15:26 Pulse Oximetry 100 09/12/24 15:26 Oxygen Delivery Room Air 09/12/24 15:26 Temperature 97.7 F 09/12/24 17:09 Pulse Rate 84 09/12/24 17:09 Respiratory Rate 15 09/12/24 17:09 Blood Pressure 112/57 L 09/12/24 17:09 Pulse Oximetry 99 09/12/24 17:09 Oxygen Delivery Room Air 09/12/24 15:26 MDM - Extremity Injury (Lower) MDM Narrative Medical decision making narrative: This is a 49-year-old female who presents to the ED for chief complaint of right knee pain and ankle pain after injury 3 days ago. Vitals are normal. Exam remarkable for the above. Right knee x-ray show no acute osseous findings. Right ankle x-rays: IMPRESSION: Lucency seen in the distal fibula in the area of the ankle suggestive of a fracture. Evaluation for tenderness in the area advised. Patient did have previous distal fibula fracture which appears similar on previous x-rays from last year, however she does have tenderness to palpation to the lateral malleolus. For will place posterior short-leg splint for presumed distal fibula fracture. Patient was given knee immobilizer for the knee swelling and encouraged to follow-up with PCP on this issue. She knows to follow up in 5 days for suture removal. Rx for [place] given. Patient will be discharged in stable condition. Supportive measures discussed and return precautions given. Patient is understanding and agreeable with plan for discharge with PCP follow-up. Discharge Plan Discharge Clinical Impression: Effusion of knee joint right Fracture of distal end of fibula Qualifiers: Encounter type: initial encounter Fracture type: closed Fracture morphology: unspecified fracture morphology Laterality: right Qualified Code(s): S82.831A - Other fracture of upper and lower end of right fibula, initial encounter for closed fracture Patient Disposition: Home, Self-Care Condition: Stable Instructions: Antibiotic Form Additional Instructions: Exam today does show evidence of fracture to the ankle. Please follow-up with PCP for the knee in the ankle. You will need to see Orthopedics for follow-up as well. If you have any new or worsening symptoms please return to the ER for further evaluation. Patient Language: Gibraltarian Prescriptions: New hydrocodone-acetaminophen 5-325 mg tablet 1 tablet PO Q8H PRN (Reason: pain) Qty: 14 0RF ibuprofen 600 mg tablet 600 mg PO Q6H PRN (Reason: pain) Qty: 30 0RF No Action hydrocodone-acetaminophen 5-325 mg tablet 1 tablet PO Q6H PRN (Reason: pain) Qty: 15 0RF cyclobenzaprine 10 mg tablet alprazolam 1 mg tablet hydroxyzine HCl 50 mg tablet lithium carbonate 450 mg tablet extended release PO meloxicam 7.5 mg tablet ropinirole 0.25 mg tablet ferrous sulfate 325 mg (65 mg iron) tablet,delayed release (DR/EC) 325 mg PO DAILY Qty: 30 0RF ketorolac 10 mg tablet 10 mg PO Q8H PRN (Reason: pain) Qty: 15 0RF Rx Instructions: maximum total duration of 5 days from all oral, intranasal, or parenteral formulations ibuprofen 800 mg tablet 800 mg PO TID PRN (Reason: pain) 7 Days Qty: 21 0RF acetaminophen 500 mg tablet 1,000 mg PO TID PRN (Reason: brittany) 7 Days Qty: 42 0RF cephalexin 500 mg capsule 500 mg PO Q12H Qty: 14 0RF Follow-up/Referrals: Dossett,Jarrell Reyez MD [Non-Staff] - Wilbert Gonzalez MD [Physician] - Andres Owusu MD [Physician] - Time of Disposition: 16:31
[2024-09-12] MEDS: ACETAMINOPHEN 325 MG TABLET 650 MG PO (16:30)
[2024-09-12] MEDS: HYDROcodone/acetaminophen (*CRX) 5-325 MG TABLET 1 TAB PO (16:31)
--- NOTE | 2024-09-12 17:05 | PC.NURSE ---
HAYLEE Restrepo notified of immobilizer and splint placement.
[2024-09-12 17:09] VITALS: BP 112/57; PULSE 84; RESP 15; TEMP 36.5; O2SAT 99
--- OUTSIDE RECORDS SUMMARY | 2024-09-12 17:11 | XMS_ITS | Clinical Summary ---
Author Organization [facility] Address [address] [place] [address] Phone Care Team Providers Care Cover Creaser Name Role Phone Jarrell Rios MD Primary Care Provider [phone] Allergies No known active allergies Medications pantoprazole [...] Type Department Care Team Description 09/06/2024 Telephone [facility] [address] [place] [address] [phone] Zena Church APRN, CNP 08/07/2024 Refill [facility] [address] [place] [address] [phone] Zena Church APRN, [place] Medication Refill [...] Comments Blood Pressure 108/66 05/16/2024 11:13 AM MEDICAL PHYSICS RESEARCHER Pulse 92 05/16/2024 11:13 AM MEDICAL PHYSICS RESEARCHER Temperature - - Respiratory Rate 18 05/16/2024 11:13 AM MEDICAL PHYSICS RESEARCHER Oxygen Saturation 100% 05/16/2024 11:13 AM MEDICAL PHYSICS RESEARCHER Inhaled Oxygen Concentration - - Weight 47.2 kg (104 lb) 05/16/2024 11:13 AM MEDICAL PHYSICS RESEARCHER Height 160 cm (5' 3 ) 05/16/2024 11:13 AM MEDICAL PHYSICS RESEARCHER Body Mass Index 18.42 05/16/2024 11:13 AM MEDICAL PHYSICS RESEARCHER Plan of Treatment Health Maintenance Due Date Last Done Comments [...] patient's age to complete this topic Insurance Care Teams Cover Creaser Relationship Specialty Start Date End Date Jarrell Rios MD [address] [place] [address] PCP - General Family Medicine 04/03/24"
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
--- OUTSIDE RECORDS SUMMARY | 2024-09-12 17:11 | XMS_ITS | Clinical Summary ---
Author Organization [facility] Address [facility] [place] [address] Care Team Providers Care Nutrition Associate Name Role Phone Jarrell Rios MD Primary Care Provider [phone] Eliu Feliz MD Unavailable [phone] Allergies No known active allergies Medications ARIPiprazole [...] mg total) by mouth daily 30 tablet 11 06/08/20 23 Active Additional Information Patient not taking.Reported on 08/09/2023 multivit oabtrpuf-fwgk-WP-c alcium (THERA-M) 9 mg iron-400 mcg tablet Take 1 tablet by mouth daily 30 tablet 06/08/20 23 Active Additional Information Patient not taking.Reported on 10/12/2023 folic acid (FOLVITE) 1 mg tablet Take 1 tablet (1 mg total) by mouth daily 30 tablet 11 06/08/20 23 Active Additional Information Patient not taking.Reported on [...] daily take with food 168 tablet 04/20/20 Active Active Problems Problem Noted Date Diagnosed [...] 04/16/2024 Assessment & Plan (05/01/2024 3:26 PM FIXED ROUTE BUS OPERATOR): Patient suffered an inferior orbital fracture left [...] patient to ED for further work-up, let [place] [facility] know she is coming Assessment & [...] from them please call: ENT scheduling line: [phone] Acute traumatic pain 04/16/2024 Assessment & Plan [...] 06/04/2023 Alcohol withdrawal syndrome without complication 06/03/2023 Encounters Date Type Department Care Team Description 08/04/2024 Documentation [facility] Infectious Diseases [address] [facility] [address] [place] [address] Natividad Maloney CNS 06/23/2024 Telephone [facility] Infectious Diseases [address] [facility] [address] [place] [address] Claudia Marshall, CHIMNEY REPAIRER 06/15/2024 Telephone [facility] Infectious Diseases [address] [facility] [address] [place] [address] Natividad Maloney CNS from Last 3 Months Immunizations Immunization Administration Dates Next Due Influenza, Trivalent, Preservative Free, Intramu scular 04/18/2024 Surgical History Surgery Date Site/Laterality Comments COLONOSCOPY Social History Tobacco Use Types Packs/Day Years Used Date Smoking Tobacco: Every Day Cigarettes Tobacco Cessation:Ready to Q uit: Not Asked; Counseling Given: Not Answered [facility] Utilities Answer Date Recorded In the past 12 months has [employer], or water [employer] threatened to shut off services in your [...] 04/27/2024 How often do you attend chur or scientology services? More than 4 times per year 04/27/2024 Do you belong to any clubs o r organizations such as yarsanism groups, unions, fraternal or athletic groups, or [...] any time in the past 12 m [facility], were you homeless or living in a halfway (including now)? No 04/27/2024 Personal Safety Answer [...] on file Sexual Orientation Not on file Obstetrics History Last Filed Vital Signs Vital Sign Reading [...] 04/16/2024 11:09 AM CDT Plan of Treatment Health Maintenance Due Date Last Done Comments Cervical Cancer Screening 1977 Colon Cancer Screening-Colonoscopy 1977 Hepatitis B Screening 1995 Regular Well Visit/Exam 18-64 1995 Pneumococcal vaccine <65 (1 of 2 - PCV) 1996 Breast Cancer Screening-Mammogram 02/26/2021 020, 02/27/2020 Covid-19 Vaccine (3 - season) 2024, 06/28/2020 Depression Screening 04/16/2025 04/16/2024 DTaP/Tdap/Td Vaccine (2 - Td or Tdap) 12/04/202902/2020 Hepatitis C Screening Completed 04/17/2024 Influenza Vaccine Completed 04/18/2024 Procedures Procedure Name Priority Date/Time Associated Diagnosis [...] MICROBIOLOGY - GEN ERAL ORDERABLES Final Result [facility] Department [place] [address] from Last 3 Months or Most Recently Relevant to Health Maintenance [facility] [address] [facility] Iam Siegel [address] Advance Directives For more information, please contact: [phone] * Full Code (Latest Code Status on File) Date Activated Date Inactivated Comments 04/16/2024 9:24 PM 04/20/2024 6:21 PM * Full Code Date Activated Date Inactivated Comments 06/03/2023 1:58 PM 06/07/2023 8:14 PM Care Teams Nutrition Associate Relationship Specialty Start Date End Date Jarrell Rios MD [address] [place] [address] PCP - General Family Medicine 12/16/22 Eliu Feliz MD [address] [facility] [phone] [place] [address] Surgeon Colon and Rectal Surgery 03/23/23
--- OUTSIDE RECORDS SUMMARY | 2024-09-12 18:01 | XMS_ITS | Clinical Summary ---
Author Organization [facility] Address [facility] [place] [address] Care Team Providers Care Residence Hall Director Name Role Phone Jarrell Rois MD Primary Care Provider [phone] Eliu Feliz MD Unavailable [phone] Allergies No known active allergies Medications [...] Information Patient not taking.Reported on 08/09/2023 multivit bstnyrop-ncof-YH-c alcium (THERA-M) 9 mg iron-400 mcg tablet [...] 04/16/2024 Assessment & Plan (05/01/2024 3:26 PM COMPUTER SUPPORT ANALYST): Patient suffered an inferior orbital fracture left [...] patient to ED for further work-up, let [place] [facility] know she is coming Assessment & [...] from them please call: ENT scheduling line: [phone] Acute traumatic pain 04/16/2024 Assessment & Plan [...] Type Department Care Team Description 08/04/2024 Documentation [facility] Infectious Diseases [address] [facility] [address] [place] [address] Natividad Maloney CNS 06/23/2024 Telephone [facility] Infectious Diseases [address] [facility] [address] [place] [address] Claudia Marshall, OFFICE DIRECTOR 06/15/2024 Telephone [facility] Infectious Diseases [address] [facility] [address] [place] [address] Natividad Maloney CNS from Last 3 Months Immunizations Immunization Administration Dates Next Due Influenza, Trivalent, Preservative Free, Intramu scular 04/18/2024 Surgical History Surgery Date Site/Laterality Comments COLONOSCOPY Social History Tobacco Use Types Packs/Day Years Used Date Smoking Tobacco: Every Day Cigarettes Tobacco Cessation:Ready to Q uit: Not Asked; Counseling Given: Not Answered [facility] Utilities Answer Date Recorded In the past 12 months has [employer], [employer], or water [address] threatened to shut off services in your [...] How often do you attend chur or faith services? More than 4 times per year 04/27/2024 Do you belong to any clubs o r organizations such as episcopal groups, unions, fraternal or athletic groups, or [...] any time in the past 12 m [facility], were you homeless or living in a correction (including now)? No 04/27/2024 Personal Safety Answer [...] - GEN ERAL ORDERABLES Final Result [facility] Department [place] [address] from Last 3 Months or Most Recently Relevant to Health Maintenance [facility] [address] [facility] Iam Siegel [address] Advance Directives For more information, please contact: [phone] * Full Code (Latest Code Status on File) Date Activated Date Inactivated Comments 04/16/2024 9:24 PM 04/20/2024 6:21 PM * Full Code Date Activated Date Inactivated Comments 06/03/2023 1:58 PM 06/07/2023 8:14 PM Care Teams Residence Hall Director Relationship Specialty Start Date End Date Jarrell Rios MD [address] [place] [address] PCP - General Family Medicine 12/16/22 Eliu Feliz MD [address] [facility] [phone] [place] [address] Surgeon Colon and Rectal Surgery 03/23/23
--- OUTSIDE RECORDS SUMMARY | 2024-09-12 18:01 | XMS_ITS | Clinical Summary ---
Author Organization [facility] Address [address] [place] [address] Phone Care Team Providers Care Resource Specialist Name Role Phone Jarrell Rios MD Primary Care Provider [phone] Allergies No known active allergies Medications pantoprazole [...] Type Department Care Team Description 09/06/2024 Telephone [facility] [address] [place] [address] [phone] Zena Church APRN, CNP 08/07/2024 Refill [facility] [address] [place] [address] [phone] Zena Church APRN, KENNEDY Medication Refill [...] Comments Blood Pressure 108/66 05/16/2024 11:13 AM FUR CLIPPER Pulse 92 05/16/2024 11:13 AM FUR CLIPPER Temperature - - Respiratory Rate 18 05/16/2024 11:13 AM FUR CLIPPER Oxygen Saturation 100% 05/16/2024 11:13 AM FUR CLIPPER Inhaled Oxygen Concentration - - Weight 47.2 kg (104 lb) 05/16/2024 11:13 AM FUR CLIPPER Height 160 cm (5' 3 ) 05/16/2024 11:13 AM FUR CLIPPER Body Mass Index 18.42 05/16/2024 11:13 AM FUR CLIPPER Plan of Treatment Health Maintenance Due Date [...] to complete this topic Insurance Care Teams Resource Specialist Relationship Specialty Start Date End Date Jarrell Rios MD [address] [place] [address] PCP - General Family Medicine 04/03/24
--- OUTSIDE RECORDS SUMMARY | 2024-09-12 18:01 | XMS_ITS | Referral Summary ---
Author Organization [facility] Address [address] [place] [address] Care Team Providers Care Willow Specialists Name Role Phone Jarrell Rios MD Primary Care Provider [phone] Eliu Feliz MD Unavailable [phone] Encounters Date Type Department Care Team Description 08/04/2024 Documentation [facility] Infectious Diseases [address] [place] [address] Natividad Maloney CNS 06/23/2024 Telephone [facility] Diseases [address] [place] [address] Claudia Marshall LCSW 06/15/2024 Telephone [facility] Infectious Diseases [address] [place] [address] Natividad Maloney CNS from Last 3 [...] Information Patient not taking.Reported on 08/09/2023 multivit twlvjxnk-upll-DC-c alcium (THERA-M) 9 mg iron-400 mcg tablet [...] 04/16/2024 Assessment & Plan (05/01/2024 3:26 PM SPECIAL SERVICE REPRESENTATIVE): Patient suffered an inferior orbital fracture left [...] patient to ED for further work-up, let [place] ED know she is coming Assessment & [...] from them please call: ENT scheduling line: [phone] Acute traumatic pain 04/16/2024 Assessment & Plan [...] uit: Not Asked; Counseling Given: Not Answered [facility] [employer] Answer Date Recorded In the past 12 months has [employer], [employer], or water [employer] threatened to shut off services in your [...] often do you attend chur ch or judaism services? More than 4 times per year 04/27/2024 Do you belong to any clubs o r organizations such as hindu groups, unions, fraternal or athletic groups, or [...] any time in the past 12 m [facility], were you homeless or living in a residential (including now)? No 04/27/2024 Personal Safety Answer [...] MICROBIOLOGY - GEN ERAL ORDERABLES Final Result [facility] One [facility] [place] [address] from Last 3 Months or Most Recently Relevant to Health Maintenance Insurance [facility] Advance Directives For more information, please contact: [phone] * Full Code (Latest Code Status on File) Date Activated Date Inactivated Comments 04/16/2024 9:24 PM 04/20/2024 6:21 PM * Full Code Date Activated Date Inactivated Comments 06/03/2023 1:58 PM 06/07/2023 8:14 PM Care Teams Willow Specialists Relationship Specialty Start Date End Date Jarrell Rios MD [address] [place] [address] PCP - General Family Medicine 12/16/22 Eliu Feliz MD [phone] [place] [address] Surgeon Colon and Rectal Surgery 03/23/23
== END 2024-09-12 17:11 | disposition home or self-care (01) ==
LOC: ANHED 16:50
PROVIDERS: Emergency Provider Physician Assistant
DX: S82.61XA Displaced fracture of lateral malleolus of right fibula, initial encounter for closed fracture (principal); F17.210 Nicotine dependence, cigarettes, uncomplicated; W01.0XXA Fall on same level from slipping, tripping and stumbling without subsequent striking against object, initial encounter
CPT/HCPCS: 73564; 73590; 73610; 99284; A9270

== ENCOUNTER 2024-09-21 18:34 | Emergency (ER) | payer OTHER, SELFPAY ==
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
--- OUTSIDE RECORDS SUMMARY | 2024-09-21 18:36 | XMS_ITS | Clinical Summary ---
Author Organization [facility] Address [address] [place] [address] Phone Care Team Providers Care Return Agent Name Role Phone Jarrell Rios MD Primary Care Provider [phone] Allergies No known active allergies Medications pantoprazole [...] Type Department Care Team Description 09/06/2024 Telephone [facility] [address] [place] [address] [phone] Zena Church APRN, CNP 08/07/2024 Refill [facility] [address] [place] [address] [phone] Zena Church APRN, [place] Medication Refill [...] Comments Blood Pressure 108/66 05/16/2024 11:13 AM COKE BURNER Pulse 92 05/16/2024 11:13 AM COKE BURNER Temperature - - Respiratory Rate 18 05/16/2024 11:13 AM COKE BURNER Oxygen Saturation 100% 05/16/2024 11:13 AM COKE BURNER Inhaled Oxygen Concentration - - Weight 47.2 kg (104 lb) 05/16/2024 11:13 AM COKE BURNER Height 160 cm (5' 3 ) 05/16/2024 11:13 AM COKE BURNER Body Mass Index 18.42 05/16/2024 11:13 AM COKE BURNER Plan of Treatment Health Maintenance Due Date [...] to complete this topic Insurance Care Teams Return Agent Relationship Specialty Start Date End Date Jarrell Rios MD [address] [place] [address] PCP - General Family Medicine 04/03/24
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
[2024-09-21 18:37] VITALS: BP 157/89; PULSE 64; RESP 20; TEMP 36.6; O2SAT 100
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
--- OUTSIDE RECORDS SUMMARY | 2024-09-21 19:00 | XMS_ITS | Clinical Summary ---
Author Organization [facility] Address [address] [place] [address] Phone Care Team Providers Care Senior Attorney Name Role Phone Jarrell Rios MD Primary Care Provider [phone] Allergies No known active allergies Medications pantoprazole [...] Type Department Care Team Description 09/06/2024 Telephone [facility] [address] [place] [address] [phone] Zena Church APRN, CNP 08/07/2024 Refill [facility] [address] [place] [address] [phone] Zena Church APRN, [place] Medication Refill [...] Comments Blood Pressure 108/66 05/16/2024 11:13 AM SPECIAL EVENTS ASSISTANT Pulse 92 05/16/2024 11:13 AM SPECIAL EVENTS ASSISTANT Temperature - - Respiratory Rate 18 05/16/2024 11:13 AM SPECIAL EVENTS ASSISTANT Oxygen Saturation 100% 05/16/2024 11:13 AM SPECIAL EVENTS ASSISTANT Inhaled Oxygen Concentration - - Weight 47.2 kg (104 lb) 05/16/2024 11:13 AM SPECIAL EVENTS ASSISTANT Height 160 cm (5' 3 ) 05/16/2024 11:13 AM SPECIAL EVENTS ASSISTANT Body Mass Index 18.42 05/16/2024 11:13 AM SPECIAL EVENTS ASSISTANT Plan of Treatment Health Maintenance Due Date [...] to complete this topic Insurance Care Teams Senior Attorney Relationship Specialty Start Date End Date Jarrell Rios MD [address] [place] [address] PCP - General Family Medicine 04/03/24
--- OUTSIDE RECORDS SUMMARY | 2024-09-21 19:00 | XMS_ITS | Referral Summary ---
Author Organization [facility] Address [facility], [address] [place] [address] Care Team Providers Care Manager Etl Name Role Phone Jarrell Rios MD Primary Care Provider [phone] Eliu Feliz MD Unavailable [phone] Encounters Date Type Department Care Team Description 08/04/2024 Documentation [facility] Infectious Diseases [address] [address] Natividad Maloney CNS 06/23/2024 Telephone [facility] Infectious Diseases [address] [address] Claudia Marshall LCSW from Last [...] Information Patient not taking.Reported on 08/09/2023 multivit rfnuczva-szxa-XS-c alcium (THERA-M) 9 mg iron-400 mcg tablet [...] 04/16/2024 Assessment & Plan (05/01/2024 3: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 More than 4 times per year 04/27/2024 Do you belong to any clubs o r organizations such as jew groups, unions, fraternal or athletic groups, or [...] any time in the past 12 m [facility], were you homeless or living in a mcfp (including now)? No 04/27/2024 Personal Safety Answer [...] MICROBIOLOGY - GEN ERAL ORDERABLES Final Result [facility] One [facility] Department [place] [address] from Last 3 Months or Most Recently Relevant to Health Maintenance Insurance [facility] Advance Directives For more information, please contact: [phone] * Full Code (Latest Code Status on File) Date Activated Date Inactivated Comments 04/16/2024 9:24 PM 04/20/2024 6:21 PM * Full Code Date Activated Date Inactivated Comments 06/03/2023 1:58 PM 06/07/2023 8:14 PM Care Teams Manager Etl Relationship Specialty Start Date End Date Jarrell Rios MD [address] [place] [address] PCP - General Family Medicine 12/16/22 Eliu Feliz MD [phone] [place] [address] Surgeon Colon and Rectal Surgery 03/23/23
--- NOTE | 2024-09-21 19:48 | ED_ITS ---
HPI - Extremity Injury (Lower) General Chief Complaint: Extremity Injury, Lower Stated Complaint: right knee pain Time Seen by Provider: 09/21/24 18:52 History of Present Illness HPI Narrative: 49-year-old female presenting to the emergency department for evaluation of right knee pain as well as upper respiratory infection symptoms. She states that the pain in her right knee has gotten worse and she has an outpatient MRI that has not been scheduled yet. She saw orthopedic surgery about 6 days ago and concern was raised for internal derangement at the right knee with potential ligamentous or meniscal injury. Tried calling her primary care provider for refill for pain medications but they refused so she was referred to the emergency department. Patient states she has also been having cold and flu-like symptoms for several days. She states she has been nauseous and not able to tolerate oral medications at home. She ran out of the White Hall that was prescribed by previous provider. She has not had any new injuries and otherwise has been well and ambulates with crutches with nonweightbearing status to the right knee. No new injuries or falls. Related Data Home Medications ?Medication ?Instructions ?Recorded ?Confirmed ?Last Taken ?Type alprazolam 1 mg tablet mg 10/21/23 09/13/24 Unknown History cyclobenzaprine 10 mg tablet mg 10/21/23 09/13/24 Unknown History hydroxyzine HCl 50 mg tablet mg 10/21/23 09/13/24 Unknown History lithium carbonate 450 mg mg PO 10/21/23 09/13/24 Unknown History tablet,extended release meloxicam 7.5 mg tablet mg 10/21/23 09/13/24 Unknown History ropinirole 0.25 mg tablet mg 10/21/23 09/13/24 Unknown History Allergies Allergy/AdvReac Type Severity Reaction Status Date / Time No Known Allergies Allergy Verified 09/13/24 15:28 Review of Systems 2 Review of Systems: As reviewed above in HPI [facility] Social History Social History Smoking status: Current every day smoker Do You Feel Safe in your Home?: Yes Lack of Transportation: No Lack of Food: Never True Current Housing: I Have Housing Concerned About Future Housing: No Difficulty Paying Gas/Electric Bills: No Difficulty Paying for Meds: No Currently Unemployed: No Education: High School Diploma/GED Difficulty w/ Childcare or Family Care: No Exam 2 Narrative: GENERAL: [Well-appearing, well-nourished, and in no acute distress.] HEAD: [Normocephalic, atraumatic.] EYES: [PERRLA and EOMI.] ENT: Nares clear, no rhinorrhea or epistaxis. Mucous membranes moist. NECK: Supple. CHEST: [Clear to auscultation. No respiratory distress.] HEART: [Regular rate and rhythm]. No murmur heard. [Normal peripheral pulses.] ABDOMEN: [Soft, nondistended], [nontender], [No rigidity or guarding] EXTREMITIES: There is a joint effusion the right knee, posterior medially located, tenderness to palpation, overlying bruising but no new injury pattern. No mobility issues with the patella, distal ankle with intact with full range of motion. 2+ dorsalis pedis pulse. Warm extremities. SKIN: Warm, dry, no rash. NEURO: [No focal deficits]. Alert and oriented [x3.] PSYCH: [Normal mood and affect.] Course Vital Signs Vital signs: Vital Signs Temperature 36.6 C 09/21/24 18:37 Pulse Rate 64 09/21/24 18:37 Respiratory Rate 20 09/21/24 18:37 Blood Pressure 157/89 H 09/21/24 18:37 Pulse Oximetry 100 09/21/24 18:37 Oxygen Delivery Room Air 09/21/24 18:37 Temperature 36.6 C 09/21/24 18:37 Pulse Rate 58 L 09/21/24 20:20 Respiratory Rate 14 09/21/24 20:20 Blood Pressure 159/79 H 09/21/24 20:20 Pulse Oximetry 99 09/21/24 20:20 Oxygen Delivery Room Air 09/21/24 18:37 MDM - Extremity Injury (Lower) MDM Narrative Medical decision making narrative: 49-year-old female presenting with subacute pain to the right knee after an injury she sustained over a week ago. She saw orthopedic surgeon Dr. Owusu outpatient with evaluation recommendations for MRI for potential internal derangement of the right knee. She ran out of her pain medications that previous ER provider prescribed. She called her regular doctor but was told to go the ER if she needs more pain medicine. She has also been having upper respiratory infection. She otherwise appears well not any acute distress. Does have an uncomfortable appearing injury to her right knee but no new injury pattern. She ambulates with crutches and nonweightbearing status with a knee immobilizer which he states helps the swelling. Patient was provided pain medications and she states that she was nauseous to the point where she was vomiting. Laboratory studies were obtained as well as a COVID flu swab. Most likely she is having acute viral illness on top for previous musculoskeletal injury and they are unlikely related. No new injuries and no need for repeat imaging at this time. She is still trying to work with her insurance on getting the MRI scheduled. She was re-evaluated after pain medications with improvement. Basic laboratory studies were unremarkable. She will be discharged home with the refill of White Hall and Compazine as needed for symptoms. She was encouraged to call her primary care provider for close outpatient evaluation and repeat evaluation by Orthopedics after MRI imaging. Medical Records Attestation: I reviewed the patient's medical records. Lab Data Attestation: I reviewed the patient's lab results. 09/21/24 19:50 09/21/24 19:50 Labs: Lab Results 09/21/24 Range/Units 19:50 WBC 11.6 H (4.5-10.0) K/mm3 RBC 4.93 (4.2-5.4) M/mm3 Hgb 11.8 L (12.0-15.0) g/dL Hct 37.6 (37.0-47.0) % MCV 76.3 L (80-100) fl MCH 23.9 L (26-34) pg MCHC 31.4 L (32-36) g/dl RDW 20.2 H (11.5-14.5) % Plt Count 453 H D (150-375) k/mm3 MPV 9.5 (7.4-10.4) fl Immature Gran % (Auto) 0.5 (0-0.5) % Neut % (Auto) 83.9 H (45.5-73.1) % Lymph % (Auto) 10.7 L (18.3-44.2) % Traill % (Auto) 4.5 (2.6-8.5) % Eos % (Auto) 0.2 (0-4.4) % Baso % (Auto) 0.2 (0.2-1.2) % Lymph # (Auto) 1.24 (0.9-3.2) K/mm3 Traill # (Auto) 0.5 (0.1-0.6) K/mm3 Eos # (Auto) 0.0 (0-0.3) K/mm3 Baso # (Auto) 0.0 (0.0-0.1) K/mm3 Abs Immat Gran (auto) 0.06 H (0.00-0.031) K/mm3 Absolute Neuts (auto) 9.7 H (1.3-6.7) K/mm3 Absolute Nucleated RBC 0.000 (0.0-0.012) K/mm3 Nucleated RBC % 0.0 (0.0-0.2) % Sodium 134 L (137-145) mmol/L Potassium 3.8 (3.4-5.0) mmol/L Chloride 95 L (98-107) mmol/L Carbon Dioxide 25 (22-30) mmol/L Anion Gap 14 H (4-12) mmol/L BUN 16 (7-17) mg/dL Creatinine 0.34 L (0.7-1.0) mg/dL Estim Creat Clear Calc 120 ml/min Estimated GFR > 60 (59 - ) Glucose 130 H (65-110) mg/dL Calcium 9.7 (8.4-10.2) mg/dL Influenza A (RT-PCR) Negative (Negative) Influenza B (RT-PCR) Negative (Negative) SARS-CoV-2 RNA (RT-PCR) Negative (Negative) Discharge Plan Discharge Clinical Impression: Internal derangement of right knee, URI (upper respiratory infection) Patient Disposition: Home, Self-Care Condition: Stable Instructions: Antibiotic Form Additional Instructions: Please call your orthopedic surgeon and your insurance companies to get the MRI scheduled. You have a upper respiratory infection but tested negative for COVID or influenza. Your laboratory studies are reassuring. We will refill your medications as needed, return with any new or worsening concerns otherwise follow-up on outpatient basis. Patient Language: Portuguese Prescriptions: New hydrocodone-acetaminophen 5-325 mg tablet 1 tablet PO Q8H PRN (Reason: pain) Qty: 14 0RF prochlorperazine maleate [Compazine] 5 mg tablet 5 mg PO Q8H PRN (Reason: nausea and vomiting) Qty: 10 0RF No Action hydrocodone-acetaminophen 5-325 mg tablet 1 tablet PO Q6H PRN (Reason: pain) Qty: 15 0RF cyclobenzaprine 10 mg tablet alprazolam 1 mg tablet hydroxyzine HCl 50 mg tablet lithium carbonate 450 mg tablet extended release PO meloxicam 7.5 mg tablet ropinirole 0.25 mg tablet ferrous sulfate 325 mg (65 mg iron) tablet,delayed release (DR/EC) 325 mg PO DAILY Qty: 30 0RF ketorolac 10 mg tablet 10 mg PO Q8H PRN (Reason: pain) Qty: 15 0RF Rx Instructions: maximum total duration of 5 days from all oral, intranasal, or parenteral formulations ibuprofen 800 mg tablet 800 mg PO TID PRN (Reason: pain) 7 Days Qty: 21 0RF acetaminophen 500 mg tablet 1,000 mg PO TID PRN (Reason: brittany) 7 Days Qty: 42 0RF cephalexin 500 mg capsule 500 mg PO Q12H Qty: 14 0RF hydrocodone-acetaminophen 5-325 mg tablet 1 tablet PO Q8H PRN (Reason: pain) Qty: 14 0RF ibuprofen 600 mg tablet 600 mg PO Q6H PRN (Reason: pain) Qty: 30 0RF Follow-up/Referrals: PHYSICIAN NOT ON STAFF,NONSTAFF [Primary Care Provider] - Time of Disposition: 20:55
[2024-09-21] MEDS: MORPHINE SULFATE (*CRX) 4 MG/ML INJ IV PUSH (19:54)
[2024-09-21] MEDS: PROCHLORPERAZINE EDISYLATE 10 MG/2 ML VIAL IV PUSH (19:54)
[2024-09-21 20:08] LABS: Basophils Percent Auto 0.2 % (0.2-1.2); Eosinophils Percent Auto 0.2 % (0-4.4); Hematocrit 37.6 % (37.0-47.0); Hemoglobin 11.8 g/dL (12.0-15.0); Immature Granulocyte Absolute 0.06 K/mm3 (0.00-0.031); Immature Granulocyte Percent A 0.5 % (0-0.5); Lymphocytes Absolute Auto 1.24 K/mm3 (0.9-3.2); Lymphocytes Percent Auto 10.7 % (18.3-44.2); Mean Corpuscular HGB Conc 31.4 g/dl (32-36); Mean Corpuscular Hemoglobin 23.9 pg (26-34); Mean Corpuscular Volume 76.3 fl (80-100); Mean Platelet Volume 9.5 fl (7.4-10.4); Monocytes Absolute Auto 0.5 K/mm3 (0.1-0.6); Monocytes Percent Auto 4.5 % (2.6-8.5); Neutrophils Absolute Auto 9.7 K/mm3 (1.3-6.7); Neutrophils Percent Auto 83.9 % (45.5-73.1); Platelet Count Result 453 k/mm3 (150-375); Red Blood Count 4.93 M/mm3 (4.2-5.4); Red Cell Distribution Width 20.2 % (11.5-14.5); White Blood Count 11.6 K/mm3 (4.5-10.0)
[2024-09-21 20:19] LABS: Anion Gap 14 mmol/L (4-12); Blood Urea Nitrogen 16 mg/dL (7-17); Calcium 9.7 mg/dL (8.4-10.2); Carbon Dioxide 25 mmol/L (22-30); Chloride 95 mmol/L (98-107); Estimated CRCL calculation 120 ml/min; Estimated Glomerular Filt Rate > 60; Glucose 130 mg/dL (65-110); Potassium 3.8 mmol/L (3.4-5.0); Sodium 134 mmol/L (137-145)
[2024-09-21 20:20] VITALS: BP 159/79; PULSE 58; RESP 14; O2SAT 99
[2024-09-21 20:43] LABS: Influenza A QL RT-PCR Negative (Negative); Influenza B QL RT-PCR Negative (Negative); SARS-CoV-2 RNA PCR Negative (Negative)
[2024-09-21 21:02] VITALS: BP 176/87; PULSE 62; RESP 18; TEMP 36.7; O2SAT 97
== END 2024-09-21 21:03 | disposition home or self-care (01) ==
PROVIDERS: Emergency Provider Student in an Organized Health Care Education/Training Program
DX: M23.91 Unspecified internal derangement of right knee (principal); S89.91XA Unspecified injury of right lower leg, initial encounter; J06.9 Acute upper respiratory infection, unspecified; Z20.822 Contact with and (suspected) exposure to COVID-19; F17.200 Nicotine dependence, unspecified, uncomplicated; Z79.899 Other long term (current) drug therapy; X58.XXXA Exposure to other specified factors, initial encounter
CPT/HCPCS: 36415; 80048; 85025; 87636; 96374; 96375; 99284; J0780; J2270

== ENCOUNTER 2024-09-23 10:54 | Emergency (ER) | payer OTHER, SELFPAY ==
--- NOTE | ~2024-09-23 | US_ITS ---
EXAM: PELVIC ULTRASOUND HISTORY: Possible nabothian cyst on CT, to the left of midline. COMPARISON: Reference is made to CT examination of the abdomen and pelvis performed the same day appr oximately 2 hours earlier. FINDINGS: UTERUS: 8.0 x 4.0 x 5.2 cm. The uterus is anteverted and anteflexed. The endometrial complex measures 4 mm. The echogenic foci described by the technologist represents the sterilization devices as described on CT examination performed 2 hours earlier. RIGHT OVARY: Despite prolonged interrogation, the right ovary was not visualized LEFT OVARY: Despite prolonged interrogation, the left ovary was not visualized. A possible fluid collection was described by the echocardiography technologist, inferior to the uterus. Anatomically, that represents either the rectum or the bladder for which transabdominal ultrasound wo uld provide the appropriate window for delineation (but only with a full bladder). The abnormality seen on CT examination measured 2.7 cm in greatest dimension, much smaller than the p ossible fluid collection described during live interrogation. Unfortunately, the lower uterine segment was not visualized on the submitted static or cine images fo r interpretation. IMPRESSION: Clinically, if there is leukocytosis, fever, or additional signs suggesting infection, then repeat ex amination may be performed (only when the bladder is full). If there are no signs of infection, outpatient evaluation with PRINCIPAL LAW CLERK is recommended, and should be perf ormed. Reviewed, dictated and finalized at location A. IMPRESSION: Clinically, if there is leukocytosis, fever, or additional signs suggesting inf ection, then repeat examination may be performed (only when the bladder is full ). If there are no signs of infection, outpatient evaluation with PRINCIPAL LAW CLERK is recommend ed, and should be performed.
--- NOTE | ~2024-09-23 | CT_ITS ---
CLINICAL INDICATION: Nausea vomiting and abdominal pain COMPARISON: 08/09/2023. TECHNIQUE: Multiple contiguous axial images of the abdomen and pelvis were performed following the ad ministration of with 100 mL Omnipaque-350 intravenous contrast The dose-length product (DLP) was 158.80 mGy-cm. Automated exposure control and iterative reconstruction technique were employed. FINDINGS/OBSERVATIONS: Visualized lower thorax: The bilateral lung bases are clear. The heart is of normal size, without pericardial effusion. Small hiatal hernia is present. Liver: Bilobed focus of fluid attenuation is identified within segment 6 of the liver, unchanged from prior. The remainder of the liver demonstrates otherwise homogeneous enhancement and is enlarged measuring 1 9 cm in longitudinal dimension. Gallbladder and biliary system: The gallbladder is only minimally distended, and otherwise unremarkable. Pancreas: The pancreas enhances homogeneously without ductal dilatation. Spleen: The spleen enhances homogeneously and is not enlarged measuring 9cm in longitudinal dimension. Kidneys: The bilateral kidneys enhance symmetrically without hydronephrosis or renal calculi. Adrenal glands: Unremarkable. Gastrointestinal tract: Fecal stasis within the colon. Appendix: The air-filled appendix is of normal caliber (axial series, images 99 through 109). Vasculature: Unremarkable. Lymph nodes: No pathologically enlarged or morphologically suspicious lymph nodes within the retroperitoneum or at the root of the mesentery. Pelvic structures: The bladder is distended, and otherwise unremarkable. The uterus is anteverted and anteflexed, and demonstrates bilateral sterilization devices. Within the lower uterine segment is a 23 x 16 mm focus of fluid, which may represent a large nabothia n cyst. Ultrasound may be performed for confirmation. Body wall and musculoskeletal: No significant degenerative disease within the lower thoracic or lumbosacral spine. IMPRESSION: Findings within the lower uterine segment/cervix, to the left of midline is a 23 mm fluid collection, possibly a nabothian cyst for which ultrasound may be performed for confirmation, if this changes th e patient management significantly. Otherwise, unremarkable CT examination of the abdomen and pelvis, as detailed above. Reviewed, dictated and finalized at location A. IMPRESSION: Findings within the lower uterine segment/cervix, to the left of midline is a 2 3 mm fluid collection, possibly a nabothian cyst for which ultrasound may be pe rformed for confirmation, if this changes the patient management significantly. Otherwise, unremarkable CT examination of the abdomen and pelvis, as detailed a alyssia.
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
--- OUTSIDE RECORDS SUMMARY | 2024-09-23 10:56 | XMS_ITS | Clinical Summary ---
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): Patient suffered an inferior orbital fracture left [...] patient to ED for further work-up, let [place] [facility] know she is coming Assessment & [...] from them please call: ENT scheduling line: [phone] Acute traumatic pain 04/16/2024 Assessment & Plan [...] Type Department Care Team Description 08/04/2024 Documentation [facility] Infectious Diseases [address] [place] [phone] Natividad Maloney CNS from Last 3 Months Immunizations Immunization Administration Dates Next Due Influenza, Trivalent, Preservative Free, Intramu scular 04/18/2024 Surgical History Surgery Date Site/Laterality Comments COLONOSCOPY Social History Tobacco Use Types Packs/Day Years Used Date Smoking Tobacco: Every Day Cigarettes Tobacco Cessation:Ready to Q uit: Not Asked; Counseling Given: Not Answered [facility] Utilities Answer Date Recorded In the past 12 months has [employer], gas, oil, or water company threatened [...] often do you attend chur ch or orthodoxy services? More than 4 times per year 04/27/2024 Do you belong to any clubs o r organizations such as roman catholic groups, unions, fraternal or athletic groups, or [...] any time in the past 12 m [facility], were you homeless or living in a alf (including now)? No 04/27/2024 Personal Safety Answer [...] 02/26/2021 020, 02/27/2020 Covid-19 Vaccine (3 - 2023- season) 2024, 06/28/2020 Depression Screening 04/16/2025 04/16/2024 [...] - GEN ERAL ORDERABLES Final Result [facility] One [facility] Department [place] [address] from Last 3 Months or Most Recently Relevant to Health Maintenance Insurance [facility] [place] [address] Advance Directives For more information, please contact: [phone] * Full Code (Latest Code Status on File) Date Activated Date Inactivated Comments 04/16/2024 9:24 PM 04/20/2024 6:21 PM * Full Code Date Activated Date Inactivated Comments 06/03/2023 1:58 PM 06/07/2023 8:14 PM Care Teams Piercing Machine Operator Relationship Specialty Start Date End Date Jarrell Rios MD [address] [place] [address] PCP - General Family Medicine 12/16/22 Eliu Feliz MD [address] [facility] [phone] [place] [address] Surgeon Colon and Rectal Surgery 03/23/23
--- OUTSIDE RECORDS SUMMARY | 2024-09-23 10:56 | XMS_ITS | Clinical Summary ---
Author Organization [facility] Address [address] [place] [address] Phone Care Team Providers Care Town Planner Name Role Phone Jarrell Rios MD Primary Care Provider [phone] Allergies No known active allergies Medications pantoprazole [...] Type Department Care Team Description 09/06/2024 Telephone [facility] [address] [place] [address] [phone] Zena Church APRN, CNP 08/07/2024 Refill [facility] [address] [place] [address] [phone] Zena Church APRN, KENN[place] Medication Refill [...] Comments Blood Pressure 108/66 05/16/2024 11:13 AM BLENDING TANK TENDER Pulse 92 05/16/2024 11:13 AM BLENDING TANK TENDER Temperature - - Respiratory Rate 18 05/16/2024 11:13 AM BLENDING TANK TENDER Oxygen Saturation 100% 05/16/2024 11:13 AM BLENDING TANK TENDER Inhaled Oxygen Concentration - - Weight 47.2 kg (104 lb) 05/16/2024 11:13 AM BLENDING TANK TENDER Height 160 cm (5' 3 ) 05/16/2024 11:13 AM BLENDING TANK TENDER Body Mass Index 18.42 05/16/2024 11:13 AM BLENDING TANK TENDER Plan of Treatment Health Maintenance Due Date [...] to complete this topic Insurance Care Teams Town Planner Relationship Specialty Start Date End Date Jarrell Rios MD [address] [place] [address] PCP - General Family Medicine 04/03/24
[2024-09-23 10:57] VITALS: BP 150/115; PULSE 84; RESP 16; TEMP 36.3; O2SAT 100
--- OUTSIDE RECORDS SUMMARY | 2024-09-23 13:24 | XMS_ITS | Referral Summary ---
Author Organization [facility] Address [address] [place] [address] Care Team Providers Care Lead Engineer Name Role Phone Jarrell Rios MD Primary Care Provider [phone] Eliu Feliz MD Unavailable [phone] Encounters Date Type Department Care Team Description 08/04/2024 Documentation [facility] Infectious Diseases [address] [place] [phone] Natividad Maloney, LANDSCAPING SPECIALIST from Last 3 Months Allergies No known [...] Information Patient not taking.Reported on 08/09/2023 multivit snawmuzh-iype-LF-c alcium (THERA-M) 9 mg iron-400 mcg tablet [...] 04/16/2024 Assessment & Plan (05/01/2024 3:26 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 HELPER 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): Patient suffered an inferior orbital fracture left [...] patient to ED for further work-up, let [place] ED know she is coming Assessment & [...] from them please call: ENT scheduling line: [phone] Acute traumatic pain 04/16/2024 Assessment & Plan [...] uit: Not Asked; Counseling Given: Not Answered [facility] Utilities Answer Date Recorded In the past 12 months has th e [employer], gas, oil, or water [employer] threatened to shut off services in your [...] any clubs o r organizations such as sabianism groups, unions, fraternal or athletic groups, or [...] any time in the past 12 m [facility], were you homeless or living in [...] - GEN ERAL ORDERABLES Final Result [facility] Department [place] [address] from Last 3 Months or Most Recently Relevant to Health Maintenance Insurance [facility] Advance Directives For more information, please contact: [phone] * Full Code (Latest Code Status on File) Date Activated Date Inactivated Comments 04/16/2024 9:24 PM 04/20/2024 6:21 PM * Full Code Date Activated Date Inactivated Comments 06/03/2023 1:58 PM 06/07/2023 8:14 PM Care Teams Lead Engineer Relationship Specialty Start Date End Date Jarrell Rios MD [address] [place] [address] PCP - General Family Medicine 12/16/22 Eliu Feliz MD [address] [facility] [phone] [place] [address] Surgeon Colon and Rectal Surgery 03/23/23
--- OUTSIDE RECORDS SUMMARY | 2024-09-23 13:24 | XMS_ITS | Clinical Summary ---
Author Organization [facility] Address [facility] [place] [address] Care Team Providers Care Residential Sales Associate Name Role Phone Jarrell Rios MD Primary Care Provider [phone] Eliu Feliz MD Unavailable [phone] Allergies No known active allergies Medications [...] Information Patient not taking.Reported on 08/09/2023 multivit vakrqvvy-dcmp-CV-c alcium (THERA-M) 9 mg iron-400 mcg tablet [...] 04/16/2024 Assessment & Plan (05/01/2024 3:26 PM MULTIPLE DRUM SANDER HELPER): Patient suffered an inferior orbital fracture [...] patient to ED for further work-up, let [place] ED know she is coming Assessment & [...] from them please call: ENT scheduling line: [phone] Acute traumatic pain 04/16/2024 Assessment & Plan [...] Type Department Care Team Description 08/04/2024 Documentation [facility] Infectious Diseases [address] [place] [phone] Natividad Maloney CNS from Last 3 Months Immunizations Immunization Administration Dates Next Due Influenza, Trivalent, Preservative Free, Intramu scular 04/18/2024 Surgical History Surgery Date Site/Laterality Comments COLONOSCOPY Social History Tobacco Use Types Packs/Day Years Used Date Smoking Tobacco: Every Day Cigarettes Tobacco Cessation:Ready to Q uit: Not Asked; Counseling Given: Not Answered [facility] Utilities Answer Date Recorded In the past 12 months has [employer], gas, oil, or water company threatened [...] often do you attend chur ch or adventism services? More than 4 times per year 04/27/2024 Do you belong to any clubs o r organizations such as oriental orthodox groups, unions, fraternal or athletic groups, or [...] any time in the past 12 m [facility], were you homeless or living in a penitentiary (including now)? No 04/27/2024 Personal Safety Answer [...] MICROBIOLOGY - GEN ERAL ORDERABLES Final Result [facility] One [facility] Department [place] [address] from Last 3 Months or Most Recently Relevant to Health Maintenance Insurance [facility] [place] [address] Advance Directives For more information, please contact: [phone] * Full Code (Latest Code Status on File) Date Activated Date Inactivated Comments 04/16/2024 9:24 PM 04/20/2024 6:21 PM * Full Code Date Activated Date Inactivated Comments 06/03/2023 1:58 PM 06/07/2023 8:14 PM Care Teams Residential Sales Associate Relationship Specialty Start Date End Date Jarrell Rios MD [address] [place] [address] PCP - General Family Medicine 12/16/22 Eliu Feliz MD [address] [facility] [phone] [place] [address] Surgeon Colon and Rectal Surgery 03/23/23
--- OUTSIDE RECORDS SUMMARY | 2024-09-23 13:24 | XMS_ITS | Clinical Summary ---
Author Organization [facility] Address [address] [place] [address] Phone Care Team Providers Care Supply Chain Development Manager Name Role Phone Jarrell Rios MD Primary Care Provider [phone] Allergies No known active allergies Medications pantoprazole [...] Type Department Care Team Description 09/06/2024 Telephone [facility] [address] [place] [address] [phone] Zena Church APRN, CNP 08/07/2024 Refill [facility] [address] [place] [address] [phone] Zena Church APRN, KENNEDY Medication Refill [...] Comments Blood Pressure 108/66 05/16/2024 11:13 AM SENIOR ONLINE MARKETING MANAGER Pulse 92 05/16/2024 11:13 AM SENIOR ONLINE MARKETING MANAGER Temperature - - Respiratory Rate 18 05/16/2024 11:13 AM SENIOR ONLINE MARKETING MANAGER Oxygen Saturation 100% 05/16/2024 11:13 AM SENIOR ONLINE MARKETING MANAGER Inhaled Oxygen Concentration - - Weight 47.2 kg (104 lb) 05/16/2024 11:13 AM SENIOR ONLINE MARKETING MANAGER Height 160 cm (5' 3 ) 05/16/2024 11:13 AM SENIOR ONLINE MARKETING MANAGER Body Mass Index 18.42 05/16/2024 11:13 AM SENIOR ONLINE MARKETING MANAGER Plan of Treatment Health Maintenance Due Date [...] to complete this topic Insurance Care Teams Supply Chain Development Manager Relationship Specialty Start Date End Date Jarrell Rios MD [address] [place] [address] PCP - General Family Medicine 04/03/24
[2024-09-23 13:45] VITALS: BP 160/105; PULSE 77; RESP 15; O2SAT 96
[2024-09-23 13:52] LABS: Basophils Percent Auto 0.2 % (0.2-1.2); Eosinophils Percent Auto 0.1 % (0-4.4); Hematocrit 42.3 % (37.0-47.0); Immature Granulocyte Absolute 0.05 K/mm3 (0.00-0.031); Immature Granulocyte Percent A 0.5 % (0-0.5); Lymphocytes Absolute Auto 1.94 K/mm3 (0.9-3.2); Lymphocytes Percent Auto 20.2 % (18.3-44.2); Mean Corpuscular HGB Conc 30.7 g/dl (32-36); Mean Corpuscular Hemoglobin 23.9 pg (26-34); Mean Corpuscular Volume 77.9 fl (80-100); Mean Platelet Volume 9.4 fl (7.4-10.4); Monocytes Absolute Auto 0.8 K/mm3 (0.1-0.6); Monocytes Percent Auto 8.7 % (2.6-8.5); Neutrophils Absolute Auto 6.7 K/mm3 (1.3-6.7); Neutrophils Percent Auto 70.3 % (45.5-73.1); Platelet Count Result 523 k/mm3 (150-375); Red Blood Count 5.43 M/mm3 (4.2-5.4); White Blood Count 9.6 K/mm3 (4.5-10.0)
[2024-09-23 13:55] LABS: BEDSIDEPREGUCG Negative (Negative)
[2024-09-23 14:03] LABS: Add Urine Microscopic? YES; Appearance Urine Cloudy (Clear); Bacteria Urine Rare /hpf; Bilirubin Urine Negative (Negative); Blood Urine 2+ (Negative); Color Urine Yellow (Yellow); Glucose Urine UA Negative (Negative); Ketones Urine Negative (Negative); Leukocyte Esterase Ur Negative LEU/UL (Negative); Nitrate Urine Negative (Negative); Non Pathogenic Casts 0-2; Protein Urine 2+ mg/dL (Negative); Specific Grav Ur 1.022 (1.001-1.035); Squamous Epithelial Cell Urine Moderate /hpf (Few); WBC Urine 0-5 /hpf (0-3); pH Urine 6.5 (5.0-9.0)
[2024-09-23 14:10] LABS: Alanine Aminotransferase 17 U/L (6-35); Albumin Level 4.8 g/dL (3.5-5.1); Alkaline Phosphatase 75 U/L (38-126); Anion Gap 14 mmol/L (4-12); Aspartate Amino Transferase 22 U/L (14-36); Bilirubin,Total 0.5 mg/dL (0.2-1.3); Blood Urea Nitrogen 14 mg/dL (7-17); Calcium 9.6 mg/dL (8.4-10.2); Carbon Dioxide 23 mmol/L (22-30); Chloride 96 mmol/L (98-107); Estimated CRCL calculation 83 ml/min; Estimated Glomerular Filt Rate > 60; Glucose 131 mg/dL (65-110); Lipase 74 U/L (23-300); Potassium 3.4 mmol/L (3.4-5.0); Sodium 133 mmol/L (137-145)
[2024-09-23] MEDS: HALOPERIDOL LACTATE 5 MG/ML VIAL 2.5 MG IV PUSH (15:28)
[2024-09-23] MEDS: HYDROmorphone HCL INJ (*CRX) 1 MG/ML SYR 0.5 MG IV PUSH (15:28)
--- NOTE | 2024-09-23 15:34 | ED_ITS ---
HPI - Nausea/Vomiting/Diarrhea General Chief complaint: Nausea/Vomiting/Diarrhea Stated complaint: n/v, knee pain Time Seen by Provider: 09/23/24 13:18 History of Present Illness HPI Narrative: 49-year-old female presenting to the emergency department for evaluation of nausea, vomiting, abdominal pain. She was seen 2 days ago for evaluation of her right knee pain that is recently getting worse as well as upper respiratory infection symptoms. She was discharged after unremarkable examination and has been trying to take her medications for both nausea and pain but has been vomiting this up. She does smoke marijuana frequently and states that she is due nauseous even smoke now. Denies any abdominal pain, back pain. She states she has generalized myalgias and pain in her right knee that she is not able to control his she is vomiting. Denies any recent surgical history. She was otherwise in her normal state of health aside from the knee injury that she had several weeks ago. Related Data Home Medications ?Medication ?Instructions ?Recorded ?Confirmed ?Last Taken ?Type alprazolam 1 mg tablet mg 10/21/23 09/13/24 Unknown History cyclobenzaprine 10 mg tablet mg 10/21/23 09/13/24 Unknown History hydroxyzine HCl 50 mg tablet mg 10/21/23 09/13/24 Unknown History lithium carbonate 450 mg mg PO 10/21/23 09/13/24 Unknown History tablet,extended release meloxicam 7.5 mg tablet mg 10/21/23 09/13/24 Unknown History ropinirole 0.25 mg tablet mg 10/21/23 09/13/24 Unknown History Allergies Allergy/AdvReac Type Severity Reaction Status Date / Time No Known Allergies Allergy Verified 09/23/24 10:56 Review of Systems 2 Review of Systems: As reviewed above in HPI [facility] Social History Social History Smoking status: Current every day smoker Do You Feel Safe in your Home?: Yes Lack of Transportation: No Lack of Food: Never True Current Housing: I Have Housing Concerned About Future Housing: No Difficulty Paying Gas/Electric Bills: No Difficulty Paying for Meds: No Currently Unemployed: No Education: High School Diploma/GED Difficulty w/ Childcare or Family Care: No Exam 2 Narrative: GENERAL: [Well-appearing, well-nourished, and in no acute distress.] HEAD: [Normocephalic, atraumatic.] EYES: [PERRLA and EOMI.] ENT: Nares clear, no rhinorrhea or epistaxis. Mucous membranes moist. NECK: Supple. CHEST: [Clear to auscultation. No respiratory distress.] HEART: [Regular rate and rhythm]. No murmur heard. [Normal peripheral pulses.] ABDOMEN: [Soft, nondistended], [nontender], [No rigidity or guarding] EXTREMITIES: There is a joint effusion the right knee, posterior medially located, tenderness to palpation, overlying bruising but no new injury pattern. No mobility issues with the patella, distal ankle with intact with full range of motion. 2+ dorsalis pedis pulse. Warm extremities. SKIN: Warm, dry, no rash. NEURO: [No focal deficits]. Alert and oriented [x3.] PSYCH: [Normal mood and affect.] Course Vital Signs Vital signs: Vital Signs Temperature 36.3 C L 09/23/24 10:57 Pulse Rate 84 09/23/24 10:57 Respiratory Rate 16 09/23/24 10:57 Blood Pressure 150/115 H 09/23/24 10:57 Pulse Oximetry 100 09/23/24 10:57 Oxygen Delivery Room Air 09/23/24 10:57 Temperature 36.3 C L 09/23/24 10:57 Pulse Rate 87 09/23/24 18:22 Respiratory Rate 15 09/23/24 18:22 Blood Pressure 125/89 09/23/24 18:22 Pulse Oximetry 97 09/23/24 18:22 Oxygen Delivery Room Air 09/23/24 10:57 Procedures Other Procedure Procedure 1: Other Procedure: Suture removal: Patient's right knee previously had 2 stitches placed for wound approximation. Wound is well healed, scabbed over. Stitches removed without complication, no bleeding. No signs of infection or purulence. MDM - Nausea/Vomiting/Diarrhea MDM Narrative Medical decision making narrative: 49-year-old female presenting with nausea, vomiting, generalized pain, worsening pain right knee. She was recently seen here several days ago for right knee pain upper respiratory infection symptoms. She was discharged home after unremarkable examination and laboratory studies. She was discharged home with antiemetics and [place]. Patient states that she is been nauseous and not able to take her oral medications. She otherwise appears well not any acute distress. Her vital signs are reassuring, unremarkable examination the soft nontender nondistended abdomen. Additional laboratory studies were obtained, CT abdomen pelvis was obtained, urinalysis obtained. test ordered. She was provided pain control medications as well as fluids. She was given antiemetics with Haldol and Dilaudid for analgesia. Patient was re-evaluated after haloperidol had complete symptomatic resolution. I encouraged her to refrain from marijuana as this could be marijuana hyperemesis cannabinoid hyperemesis or potential cyclic vomiting. Patient's workup shows no leukocytosis or anemia. Electrolytes are all normal, normal renal function, normal glucose and hepatic function. Normal lipase. Urinalysis with no signs of infection, contaminated sample. Negative test. CT scan shows unremarkable findings, incidentally found fluid collection in the uterine segment consistent with nabothian cyst which is a benign finding. Pelvic ultrasounds obtained to further evaluate although this is unlikely related to patient's symptoms. Ultrasound examination was unremarkable but not able to fully characterize this. Radiology recommended outpatient ob/gyn physician evaluation if warranted but patient has no signs of infection, no symptoms from this, no leukocytosis, fever. Patient was informed of this and will follow-up with OBGYN as needed. Given patient's improvement after Haldol and lack of any acute findings here I believe she can be safely discharged home on this medication for control of cannabis hyperemesis. Patient and family at bedside were very comfortable with this plan and will trial this medication. They wanted a new primary care provider to be referred to so I did provide additional resources for them. She was safe for discharge at this time. Patient also inquired about suture removal from her previous incision 2 weeks ago. This was removed at bedside. Medical Records Attestation: I reviewed the patient's medical records. Lab Data Attestation: I reviewed the patient's lab results. 09/23/24 13:38 09/23/24 13:38 Labs: Lab Results 09/23/24 09/23/24 09/23/24 Range/Units 13:38 13:53 13:54 WBC 9.6 (4.5-10.0) K/mm3 RBC 5.43 H (4.2-5.4) M/mm3 Hgb 13.0 (12.0-15.0) g/dL Hct 42.3 (37.0-47.0) % MCV 77.9 L (80-100) fl MCH 23.9 L (26-34) pg MCHC 30.7 L (32-36) g/dl RDW 20.0 H (11.5-14.5) % Plt Count 523 H (150-375) k/mm3 MPV 9.4 (7.4-10.4) fl Immature Gran % (Auto) 0.5 (0-0.5) % Neut % (Auto) 70.3 (45.5-73.1) % Lymph % (Auto) 20.2 (18.3-44.2) % [place] % (Auto) 8.7 H (2.6-8.5) % Eos % (Auto) 0.1 (0-4.4) % Baso % (Auto) 0.2 (0.2-1.2) % Lymph # (Auto) 1.94 (0.9-3.2) K/mm3 [place] # (Auto) 0.8 H (0.1-0.6) K/mm3 Eos # (Auto) 0.0 (0-0.3) K/mm3 Baso # (Auto) 0.0 (0.0-0.1) K/mm3 Abs Immat Gran (auto) 0.05 H (0.00-0.031) K/mm3 Absolute Neuts (auto) 6.7 (1.3-6.7) K/mm3 Absolute Nucleated RBC 0.000 (0.0-0.012) K/mm3 Nucleated RBC % 0.0 (0.0-0.2) % Sodium 133 L (137-145) mmol/L Potassium 3.4 (3.4-5.0) mmol/L Chloride 96 L (98-107) mmol/L Carbon Dioxide 23 (22-30) mmol/L Anion Gap 14 H (4-12) mmol/L BUN 14 (7-17) mg/dL Creatinine 0.53 L (0.7-1.0) mg/dL Estim Creat Clear Calc 83 ml/min Estimated GFR > 60 (59 - ) Glucose 131 H (65-110) mg/dL Calcium 9.6 (8.4-10.2) mg/dL Total Bilirubin 0.5 (0.2-1.3) mg/dL AST 22 (14-36) U/L ALT 17 (6-35) U/L Alkaline Phosphatase 75 (38-126) U/L Total Protein 8.0 (6.3-8.2) g/dL Albumin 4.8 (3.5-5.1) g/dL Lipase 74 (23-300) U/L Urine Color Yellow (Yellow) Urine Appearance Cloudy H (Clear) Urine pH 6.5 (5.0-9.0) Ur Specific [place] 1.022 (1.001-1.035) Urine Protein 2+ H (Negative) mg/dL Urine Glucose (UA) Negative (Negative) mg/dL Urine Ketones Negative (Negative) mg/dL Ur Blood (Man) 2+ H (Negative) Urine Nitrate Negative (Negative) Urine Bilirubin Negative (Negative) Urine Urobilinogen 1.0 (<2.0) mg/dL Leukocyte Esterase Rfl Negative (Negative) JERROD/UL Urine RBC 6-10 H (0-2) /hpf Urine WBC 0-5 (0-3) /hpf Ur Squamous Epith Cells Moderate (Few) /hpf Urine Bacteria Rare /hpf Urine Casts 0-2 POC Urine HCG, Qual Negative (Negative) Discharge Plan Discharge Clinical Impression: Cannabis hyperemesis syndrome concurrent with and due to cannabis dependence, Nausea & vomiting Patient Disposition: Home, Self-Care Condition: Stable Instructions: Antibiotic Form, Acute Nausea and Vomiting (ED) Additional Instructions: We treated with haloperidol which is an antiemetic medication that helps treat cyclic vomiting and nausea vomiting from cannabis use. Refrain from all cannabis use such as smoking or gummies. Take this medication as needed for nausea and vomiting and do not take the previously prescribed Zofran or Compazine as this can interact with this medication. Follow-up with your primary care provider for repeat evaluation. Return with any new or worsening emergent concerns. Patient Language: Yakut Prescriptions: New haloperidol 2 mg tablet 2 mg PO TID PRN (Reason: nausea and vomiting) Qty: 20 0RF No Action hydrocodone-acetaminophen 5-325 mg tablet 1 tablet PO Q6H PRN (Reason: pain) Qty: 15 0RF cyclobenzaprine 10 mg tablet alprazolam 1 mg tablet hydroxyzine HCl 50 mg tablet lithium carbonate 450 mg tablet extended release PO meloxicam 7.5 mg tablet ropinirole 0.25 mg tablet ferrous sulfate 325 mg (65 mg iron) tablet,delayed release (DR/EC) 325 mg PO DAILY Qty: 30 0RF ketorolac 10 mg tablet 10 mg PO Q8H PRN (Reason: pain) Qty: 15 0RF Rx Instructions: maximum total duration of 5 days from all oral, intranasal, or parenteral formulations hydrocodone-acetaminophen 5-325 mg tablet 1 tablet PO Q8H PRN (Reason: pain) Qty: 14 0RF prochlorperazine maleate [Compazine] 5 mg tablet 5 mg PO Q8H PRN (Reason: nausea and vomiting) Qty: 10 0RF ibuprofen 800 mg tablet 800 mg PO TID PRN (Reason: pain) 7 Days Qty: 21 0RF acetaminophen 500 mg tablet 1,000 mg PO TID PRN (Reason: brittany) 7 Days Qty: 42 0RF cephalexin 500 mg capsule 500 mg PO Q12H Qty: 14 0RF hydrocodone-acetaminophen 5-325 mg tablet 1 tablet PO Q8H PRN (Reason: pain) Qty: 14 0RF ibuprofen 600 mg tablet 600 mg PO Q6H PRN (Reason: pain) Qty: 30 0RF Follow-up/Referrals: Bird Wilkes MD [Physician] - 3 Days (Establish care) PHYSICIAN NOT ON STAFF,NONSTAFF [Primary Care Provider] - Time of Disposition: 19:32
[2024-09-23 16:23] VITALS: BP 119/83; PULSE 92; RESP 16; O2SAT 96
[2024-09-23 18:22] VITALS: BP 125/89; PULSE 87; RESP 15; O2SAT 97
--- NOTE | 2024-09-23 19:44 | PC.NURSE ---
patient requested stitches to be removed upon evaluation by edp dr. ribera. edp dr. nowak removed sutures.
== END 2024-09-23 20:22 | disposition home or self-care (01) ==
PROVIDERS: Emergency Medicine; Emergency Provider Student in an Organized Health Care Education/Training Program
DX: R11.2 Nausea with vomiting, unspecified (principal); F12.20 Cannabis dependence, uncomplicated; S81.001D Unspecified open wound, right knee, subsequent encounter; X58.XXXD Exposure to other specified factors, subsequent encounter; F17.200 Nicotine dependence, unspecified, uncomplicated; Z79.899 Other long term (current) drug therapy
CPT/HCPCS: 15853; 36415; 74177; 76830; 80053; 81001; 81025; 83690; 85025; 96374; 96375; 99284; J1171; J1630; Q9967

== ENCOUNTER 2024-10-07 08:12 | Outpatient (CLI) | payer OTHER, SELFPAY ==
--- NOTE | ~2024-10-07 | MR_ITS ---
MRI of the right knee Clinical history: Internal derangement Technique: Coronal proton density and proton density-weighted images, sagittal proton-density and T2 fat-sat images, and axial proton-density fat-saturated images were acquired. Findings: Anterior and posterior cruciate ligaments are intact. Medial collateral ligament and the la teral collateral ligament complex are intact. Popliteus tendon is intact. Medial and lateral menisci are intact, without evidence of tear. There is mild tricompartmental chondral thinning without focal high-grade chondral defect. There is e xtensive marrow edema in the lateral femoral condyle and lateral tibial plateau region, without defin ite discrete fracture. Extensor mechanism is intact. Small joint effusion present. There is soft tissue edema with small cre scentic fluid collection in the subcutaneous soft tissues at the medial aspect of the knee. This son ection measures up to approximately 2.5 x 0.5 cm in transverse dimensions, and up to 7.5 cm in cranio caudal extent (axial image 23 for example, coronal image 11). Impression: Extensive amorphous marrow edema in the lateral femoral condyle and lateral tibial plateau, most comp atible with bone contusions. No definite fracture seen. Elongated crescentic fluid collection, measuring 2.5 x 0.5 x 7.5 cm, in the medial subcutaneous soft tissues, which could reflect posttraumatic fluid collection/evolving hematoma or possibly sequela of shear injury. Reviewed, dictated and finalized at [facility]. Impression: Extensive amorphous marrow edema in the lateral femoral condyle and lateral tib ial plateau, most compatible with bone contusions. No definite fracture seen. Elongated crescentic fluid collection, measuring 2.5 x 0.5 x 7.5 cm, in the med ial subcutaneous soft tissues, which could reflect posttraumatic fluid collecti on/evolving hematoma or possibly sequela of shear injury.
--- OUTSIDE RECORDS SUMMARY | 2024-10-07 08:14 | XMS_ITS | Encounter Summary ---
Author Organization [facility] Address [address] [place] [address] Phone Care Team Providers Care Sales Account Executive Name Role Phone DavidsettJarrell MD Primary Care Provider Reason for Visit * Reason Comments Medication Refill Encounter Details Date Type Department Care Team (Late st Contact Info) Description 10/02/2024 Refill [facility] [address] [place] [phone] Zena Church, DOCKET SPECIALIST, CUSTOM MOTORCYCLE PAINTER [address] [place] [phone] (Work) Medication Refill Social History Tobacco Use Types Packs/Day Years Used Date Smoking Tobacco: Every Day Cigarettes Smokeless Tobacco: Never Alcohol Use Standard Drinks/Week Comments Not Currently 0 (1 standard drink = 0.6 oz pur e alcohol) PHQ-2 Answer Date Recorded Total Score - Questions 1-9 4 04/28 Comments Unknown Sex and Gender Information Value Date Recorded Sex Assigned at Not on file Legal Sex Female 3:20 AM CDT Gender Identity Not on file Sexual Orientation Not on file documented as of this encounter Plan of Treatment Upcoming Encounters Date Type Department Care Team (Late Contact Info) Description 10/12/2024 1:15 PM CDT Office Visit [facility] [address] [place] [phone] Tala Swanson, SIGNAL CONSTRUCTOR, CUSTOM MOTORCYCLE PAINTER [address] [facility] [place], [place] [phone] documented as of this encounter Visit Diagnoses Diagnosis Chronic anxiety Anxiety state, unspecified documented in this encounter Additional Health Concerns Assessment Noted Time PHQ-9 Depression Total Score: 4 05/16/20 24 11:16 AM AUTO FINANCE SALES REP documented as of this encounter Care Teams Sales Account Executive Relationship Specialty Start Date End Date Jarrell Rios MD [address] [place] [address] PCP - General Family Medicine 04/03/24 documented as of this encounter
--- OUTSIDE RECORDS SUMMARY | 2024-10-07 08:14 | XMS_ITS | Referral Summary ---
Author Organization [facility] Address [address] [place] [address] Care Team Providers Care Director Of Blood Name Role Phone Jarrell Rios MD Primary Care Provider [phone] Eliu Feliz MD Unavailable [phone] Encounters Date Type Department Care Team Description 09/29/2024 Orders Only [facility] [address] [place] [phone] Emy Valladares MD PhD Chronic hepatitis C without hepatic coma (HCC) (Primary Dx) 09/29/[address] [facility] [address] [place] [phone] Alexa Lo, VIDEO SOFTWARE ENGINEER 08/04/[address] 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 threatened to shut off services in your [...] often do you attend chur ch or anabaptism services? More than 4 times per year 04/27/2024 Do you belong to any clubs o r organizations such as baptism groups, unions, fraternal or athletic groups, or [...] any time in the past [facility], were you homeless or living in [...] MICROBIOLOGY - GEN ERAL ORDERABLES Final Result [facility] Department [place] [address] from Last 3 Months or Most Recently Relevant to Health Maintenance Insurance [facility] Advance Directives For more information, please contact: [phone] * Full Code (Latest Code Status on File) Date Activated Date Inactivated Comments 04/16/2024 9:24 PM 04/20/2024 6:21 PM * Full Code Date Activated Date Inactivated Comments 06/03/2023 1:58 PM 06/07/2023 8:14 PM Care Teams Director Of Blood Relationship Specialty Start Date End Date Jarrell Rios MD [address] [place] [phone] PCP - General Family Medicine 12/16/22 Eliu Feliz MD [address] [facility] [phone] [place] [address] Surgeon Colon and Rectal Surgery 03/23/23
--- OUTSIDE RECORDS SUMMARY | 2024-10-07 08:14 | XMS_ITS | Clinical Summary ---
Author Organization [facility] Address [address] [place] [address] Phone Care Team Providers Care Radial Saw Operator Name Role Phone Jarrell Rios MD Primary Care Provider [phone] Allergies No known active allergies Medications pantoprazole [...] 2 times daily as needed for Anxiety. 14 Tablet 5 Active lithium (ESKALITH) 450 MG Tablet Controlled Release Take 1 Tablet by mouth 2 times daily. 14 Tablet 5 Active ALPRAZolam (XANAX) 1 MG TabletIndicatio ns:Chronic anxiety Take 0.5-1 Tablets by mouth 2 times daily as needed for Anxiety. 60 Tablet 5 10/05/19 25 Discontinu ed(Reorder ) lithium (ESKALITH) 450 MG Tablet Controlled Release Take 1 Tablet by mouth 2 times daily. 60 Tablet 5 10/05/19 25 Discontinu ed(Reorder ) Active Problems Problem Noted Date Diagnosed Date Chronic anxiety 09/01/2021 History of substance abuse 09/01/2021 Severe recurrent major depression 09/01/2021 Encounters Date Type Department Care Team Description 10/04/2024 Telephone [facility] [address] [place] [phone] Tala Swanson SET UP AND LAY OUT INSPECTOR, HEEL SEAT TRIMMER 10/02/[address] [facility] [address] [place] [phone] [phone] Zena Church, [employer]Y [employer], HEEL SEAT TRIMMER Medication Refill 09/06/[address] [facility] [address] [place] [address] [phone] Zena Church, [employer], HEEL SEAT TRIMMER 08/07/[address] [facility] [address] [place] [address] [phone] Zena Church, [employer], HEEL SEAT TRIMMER Medication Refill from Last 3 Months Family [...] Comments Blood Pressure 108/66 05/16/2024 11:13 AM SUPPORT SERVICES MANAGER Pulse 92 05/16/2024 11:13 AM SUPPORT SERVICES MANAGER Temperature - - Respiratory Rate 18 05/16/2024 11:13 AM SUPPORT SERVICES MANAGER Oxygen Saturation 100% 05/16/2024 11:13 AM SUPPORT SERVICES MANAGER Inhaled Oxygen Concentration - - Weight 47.2 kg (104 lb) 05/16/2024 11:13 AM SUPPORT SERVICES MANAGER Height 160 cm (5' 3 ) 05/16/2024 11:13 AM SUPPORT SERVICES MANAGER Body Mass Index 18.42 05/16/2024 11:13 AM SUPPORT SERVICES MANAGER Plan of Treatment Upcoming Encounters Date Type Department Care Team (Late st Contact Info) Description 10/12/2024 1:15 PM CDT Office Visit [facility] [address] [place] [phone] Tala Swanson, SET UP AND LAY OUT INSPECTOR, HEEL SEAT TRIMMER [address] [place] [address] Health Maintenance Due Date Last Done Comments [...] to complete this topic Insurance Care Teams Radial Saw Operator Relationship Specialty Start Date End Date Jarrell Rios MD [address] [place] [address] PCP - General Family Medicine 04/03/24
--- OUTSIDE RECORDS SUMMARY | 2024-10-07 08:14 | XMS_ITS | Clinical Summary ---
Author Organization [facility] Address [facility] [place] [address] Care Team Providers Care [employer] Name Role Phone Jarrell Rios MD Primary Care Provider [phone] Eliu Feliz MD Unavailable [phone] Allergies No known active allergies Medications [...] Information Patient not taking.Reported on 08/09/2023 multivit zkjfugte-nfuc-ED-c alcium (THERA-M) 9 mg iron-400 mcg tablet [...] 04/16/2024 Assessment & Plan (05/01/2024 3:26 PM J2EE DEVELOPER): Patient suffered an inferior orbital fracture left [...] patient to ED for further work-up, let [facility] know she is coming Assessment & [...] from them please call: ENT scheduling line: [phone] Acute traumatic pain 04/16/2024 Assessment & Plan [...] Department Care Team Description 09/29/[address] [facility] Infectious Diseases [address] [facility] [address] [place] [id number] Emy Valladares MD PhD Chronic hepatitis C without hepatic coma (HCC) (Primary Dx) 09/29/[address] [facility] Infectious Diseases [address] [id number] Alexa Lo, VENDOR MANAGER 08/04/[address] [facility] Infectious Diseases [address] [id number] Natividad Maloney CNS from Last 3 Months Immunizations Immunization Administration Dates Next Due Influenza, Trivalent, Preservative Free, Intramu scular 04/18/2024 Surgical History Surgery Date Site/Laterality Comments COLONOSCOPY Social History Tobacco Use Types Packs/Day Years Used Date Smoking Tobacco: Every Day Cigarettes Tobacco Cessation:Ready to Q uit: Not Asked; Counseling Given: Not Answered [employer] Utilities Answer Date Recorded In the past 12 months has [id number], gas, oil, or water [employer] threatened to shut off services in your [...] How often do you attend chur or anabaptism services? More than 4 times [...] any time in the past 12 m [facility], were you homeless or living in a senior living (including now)? No 04/27/2024 Personal Safety Answer [...] Cancer Screening-Mammogram 02/26/2021 020, 02/27/2020 Covid-19 Vaccine ( season) 2024, 06/28/2020 Depression Screening 04/16/2025 04/16/2024 DTaP/Tdap/Td Vaccine (2 - Td or Tdap) 12/04/202902/2020 Influenza Vaccine Completed 04/18/2024 Hepatitis C Screening Completed 09/29/2024 , 09/29/2024, 04/17/2024 Procedures Procedure Name Priority Date/Time Associated Diagnosis [...] MICROBIOLOGY - GEN ERAL ORDERABLES Final Result [facility] Department [place] [address] from Last 3 Months or Most Recently Relevant to Health Maintenance Insurance Advance Directives For more information, please contact: [phone] * Full Code (Latest Code Status on File) Date Activated Date Inactivated Comments 04/16/2024 9:24 PM 04/20/2024 6:21 PM * Full Code Date Activated Date Inactivated Comments 06/03/2023 1:58 PM 06/07/2023 8:14 PM Care Teams [employer] Relationship Specialty Start Date End Date Jarrell Rios MD [address] [place] [address] PCP - General Family Medicine 12/16/22 Eliu Feliz MD [phone] [place] [address] Surgeon Colon and Rectal Surgery 03/23/23
== END 2024-10-07 08:13 | disposition home or self-care (01) ==
PROVIDERS: PCP Emergency Medicine; Visit Provider Orthopaedic Surgery
DX: M23.91 Unspecified internal derangement of right knee (principal); R60.0 Localized edema
CPT/HCPCS: 73721